=== PATIENT | female | born 1930 | race Caucasian/White ===

== ENCOUNTER 2017-01-16 13:09 | Inpatient (IN) ==
[2017-01-16] MEDS ORDERED: SODIUM CHLORIDE 0.9% 500 ML IV STA (14:03)
[2017-01-16 14:14] LABS: Basophils # 0.1 10*3/uL (0.0-0.2); Basophils % 0.6 % (0.0-0.8); Eosinophils # 0.3 10*3/uL (0.0-0.87); Eosinophils % 2.2 % (0.00-10.9); Hematocrit 38.7 VOL% (35.7-47.0); Hemoglobin 12.4 GM/DL (12.0-16.0); Immature Granulocytes % 0.4 %; Immature Granulocytes Absolute 0.05 #; Lymphocytes # 2.1 10*3/uL (1.4-4.0); Lymphocytes % 17.5 % (21.3-54.2); Mean Corpuscular Hemoglobin 30 PG (27-34); Mean Corpuscular Volume 94.9 FL (87-102); Mean Platelet Volume 10.1 FL (9.6-12.0); Monocytes # 0.6 10*3/uL (0.11-0.8); Monocytes % 5.1 % (1.7-12.7); Neutrophils # 8.9 10*3/uL (1.4-7.4); Neutrophils % 74.2 % (38.7-73.9); Platelet Count 265 T/CUMM (130-400); Red Blood Count 4.08 MC/CUMM (3.8-5.5); Red Cell Distribution Width 12.6 % (9.3-17.3)
--- NOTE | 2017-01-16 14:39 | XRay Report ---
History: Abdominal pain Date: 01/16/2017 Study: Flat and erect abdomen Comparison exam: No previous similar There is no evidence of pneumoperitoneum. The bowel gas pattern is nonobstructive without gross mass lesion. There is a moderate amount of stool in the normal-caliber colon. There is moderate lumbar spondylosis. There is mild to moderate lumbar degenerative disc narrowing. Compression screw and plate stabilizing an old left femoral neck fracture. [place] from remote midline abdominal surgery overlie the abdomen. Impression: No definite acute process. Moderate amount of retained stool in the colon PROCEDURE INTERPRETED AT [facility] DEPARTMENT OF RADIOLOGY Final Report Signed by: Dr. Inge Lagunas
--- NOTE | 2017-01-16 14:41 | XRay Report ---
History: Shortness of breath Date: 01/16/2017 Study: Chest x-ray single view portable Comparison exam: October 16, 2016 The cardiac silhouette is upper normal size. There is no mediastinal mass. There is moderate aortic arch calcification. There is no pleural effusion. There are some scattered emphysematous changes in the lungs. There is no acute infiltrate. There is [id number] thoracic spondylosis and suspected osteopenia. Impression: No acute process. Chronic lung changes PROCEDURE INTERPRETED AT [facility] DEPARTMENT OF RADIOLOGY Final Report Signed by: Dr. Inge Lagunas
[2017-01-16 14:43] LABS: Albumin 3.6 G/DL (3.4-5.0); Bilirubin,Total 0.8 MG/DL (0.2-1.0); Calcium 9.4 MG/DL (8.5-10.1); Magnesium 2.2 MG/DL (1.8-2.4); Osmolality,Calculated 278.3 MOS/KG (273-304); Potassium 3.5 MMOL/L (3.5-5.1); Total Protein 7.2 G/DL (6.4-8.3)
--- NOTE | 2017-01-16 15:13 | Emergency Department Note ---
Maria C Han Gwan, am scribing for, and in the presence of, Jesus Foster MD 14:08. Cristian Han Phillip K, MD, personally performed the services described in this documentation, ascribed by Michlele Lombardi in my presence, and it is both accurate and complete 513 . Arrival - Arrival Chief Complaint: GI Bleed/Rectal Stated Complaint: rectal bleed ED Nursing Triage Note: Pt c/o rectal bleeding for 1 wk worse over the last 2 days with abd pain. Mode of Arrival: Wheelchair Limitations: No Limitations Source: Patient, Old Records Reviewed, RN Notes Reviewed Time Seen by Provider: 01/16/17 13:34 - History of Present Illness HPI Narrative: Pt is a 86 y/o female who presents to the ED with a c/o rectal bleeding with an onset 1 week ago. Patient stated that her sxs began to worsens 2 days ago and has been accompanied by abd pain and pain in rectum during BM. This prompted pt to report to ED for further evaluation. Patient continued to note that she has a hx of colon blockage which causes her BM not to pass her rectum which in turn she has to use Tucks Pads to pullout her BM. Patient then noted that for the past 2 days she has noticed bright red blood in her stool and on the tissue after she wipes. Patient confirmed that she has noticed blood every time she goes to the bathroom and that Dr. Head and Dr. Mcdonald performed her Colon Surgery. She denies being dx with Colon CA, not having a scope performed since her Colon Surgery in 1999, any N/V, fever being on any blood thinners or having a PCP. No other problems/complaints reported in ED. Onset (ago): day(s) Severity: moderate Allergies/Adverse Reactions: Allergies Allergy/AdvReac Type Severity Reaction Status Date / Time No Known Allergies Allergy Unverified 10/16/16 14:00 Home Medications: Home Medications Medication Instructions Recorded Confirmed Type Multivit-Min/FA/Lycopen/Lutein 1 each PO DAILY 10/16/16 01/16/17 History [Centrum Silver Tablet] Sucralfate Tab [Carafate Tab] 1 tablet PO QID 10/16/16 01/16/17 History Meclizine [Antivert] 12.5 mg PO QID 01/16/17 01/16/17 History Review of System - Review of System 12 point system: reviewed and no additional remarkable complaints except as stated - Review of System Constitutional: Absent: chills, fever Eyes: Absent: discharge, pain Head/Ears/Nose/Throat: Absent: earache Respiratory: Absent: cough Cardiovascular: Absent: chest pain Gastrointestinal: Present: as per HPI, abdominal pain, diarrhea. Absent: nausea , vomiting Genitourinary female: Present: as per HPI, other (blood in stool) Musculoskeletal: Absent: arm pain, back pain, lower back pain, leg pain, neck pain Skin: Absent: rash, lesions Neurological: Absent: headache, weakness Medical,Surgical,& Family Hx - Medical History Cardio: History of: Hypertension HEENT: History of: Eye Problem (glasses) Genitourinary: History of: Kidney Stones Gastrointestinal: History of: Hemorrhoids, GI Problems Musculoskeletal: History of: Musculoskeletal Problems (left hip fracture) - Surgical History Abdominal Surgeries: Surgical HX of: Abdominal Surgery (colon) Reproductive Surgeries: Surgical HX of;: Hysterectomy (1968) - Family History Family History: Reports;: Family Heart Disease (mother), Family Hypertension - Social History Smoking Status: Never smoker Exam Vital Signs: Vital Signs Temperature 99.2 F 01/16/17 13:20 Pulse Rate 95 H 01/16/17 13:20 Respiratory Rate 18 01/16/17 13:20 Blood Pressure 153/93 01/16/17 13:20 O2 Sat by Pulse Oximetry 97 01/16/17 13:20 - General General appearance: alert, in no apparent distress - Head Head exam: Present: atraumatic, normocephalic - Eye Eye exam: Present: normal appearance, PERRL, EOMI - ENT ENT exam: Present: normal oropharynx, mucous membranes moist (pale mucous membrane) - Neck Neck exam: Present: full ROM, trachea midline. Absent: tenderness - Chest Chest inspection: Present: symmetric chest wall rise. Absent: tenderness - Respiratory Respiratory exam: Present: normal lung sounds bilaterally. Absent: respiratory distress - Cardiovascular Cardiovascular exam: Present: regular rate, normal rhythm, normal heart sounds. Absent: murmur - Abdominal Exam Abdominal exam: Present: soft, tenderness (LLQ and RLQ diffuse tenderness) - Rectal Exam Rectal exam: Present: heme (+) stool - Extremities Exam Extremities exam: Present: full ROM. Absent: tenderness, calf tenderness - Back Exam Back exam: Present: full ROM. Absent: tenderness - Neurological Exam Neurological exam: Present: alert, oriented X3, CN II-XII intact. Absent: motor sensory deficit - Psychiatric Psychiatric exam: Present: normal affect, normal mood - Skin Skin exam: Present: warm, dry, intact, normal color Results - Labs CBC & BMP: 01/16/17 14:07 01/16/17 14:07 Lab Results: I have reviewed the patients labs Labs: Laboratory Tests 01/16/17 14:07 WBC 12.0 RBC 4.08 Hgb 12.4 Hct 38.7 Plt Count 265 Neut % (Auto) 74.2 H Lymph % (Auto) 17.5 L Neut # (Auto) 8.9 H Laboratory Tests 01/16/17 14:07 INR 1.0 PT Patient/Control Mix 10.0 - Diagnostic Findings Procedure: Abdominal x-ray: report reviewed by me (No definite acute process. Moderate amount of retained stool in the colon. ), Chest x-ray: report reviewed by me (No acute process. Chronic lung changes.) Disposition Clinical Impression: Lower GI bleed, Hemorrhoids, Possible diverticular bleed Case discussed with: patient Disposition: Still a Patient Condition: Guarded Additional Instructions: Admit to the hospitalist.
--- NOTE | 2017-01-16 15:46 | Hospitalist History & Physical ---
Assessment and Plan (1) DVT prophylaxis Status: Acute Assessment and plan: We will start VTE prophylaxis. Will apply SCD; will not start any pharmaceutical agents at this time due to active bleeding. Current Visit: No (2) Lower GI bleed Status: Acute Assessment and plan: Will consult GI for evaluation. Will hydrate, start Protonix gtt, type and screen. Will obtain serial labs; and recheck CMP in AM. Current Visit: Yes History of Present Illness Chief complaint: bloody stools and abdominal pain. History of present illness: This is a 86 year-old female that presented to the ED at [facility] today with a chief compliant of rectal bleeding. She has a rather impressive medical history of hypertension, kidney stones, hemorrhoids, and left hip fracture. She has a surgical history of hysterectomy and colon surgery. She reported the onset of symptoms one week prior to presentation. She reported a increase of the above complaints with an acute onset of abdominal pain and pain during defecation. The patient reports a history of colon blockage that inhibits her ability to pass stool and requires the use of Tucks pads to remove stool. She reported bright red blood in her stool, in the toilet , and on tissue after wiping for the past two days. A digital rectal exam was performed per Dr. Foster. She was noted to have hemorrhoids upon visual inspection and moderate amount of formed stool with blood present upon examination. Labs were obtained; which were essentially unremarkable. Chest radiograph was obtained and benign. Abdominal xray revealed no definite acute process and moderate amount of retained stool in the colon. After discussion with both Dr. Foster and Dr. Negrete, the patient will be admitted to hospitalist services for continuation of care. We will consult GI to evaluate and treat. Home Medications Medication Instructions Recorded Confirmed Type Multivit-Min/FA/Lycopen/Lutein 1 each PO DAILY 10/16/16 01/16/17 History [Centrum Silver Tablet] Sucralfate Tab [Carafate Tab] 1 tablet PO QID 10/16/16 01/16/17 History Meclizine [Antivert] 12.5 mg PO QID 01/16/17 01/16/17 History Allergies Allergy/AdvReac Type Severity Reaction Status Date / Time No Known Allergies Allergy Unverified 10/16/16 14:00 Medical,Surgical,& Family Hx - Medical History Cardio: History of: Hypertension HEENT: History of: Eye Problem (glasses) Genitourinary: History of: Kidney Stones Gastrointestinal: History of: Hemorrhoids, GI Problems Musculoskeletal: History of: Musculoskeletal Problems (left hip fracture) - Surgical History Abdominal Surgeries: Surgical HX of: Abdominal Surgery (colon) Reproductive Surgeries: Surgical HX of;: Hysterectomy (1968) - Family History Family History: Reports;: Family Heart Disease (mother), Family Hypertension - Social History Smoking Status: Never smoker Have you smoked in the last 12 months: No Frequency of Alcohol Use: None Type of Drug Use: None Marital Status: Single Lives With:: Alone Functional capacity: independent ambulation 12 point system: reviewed and no additional remarkable complaints except as stated Exam - Constitutional Vitals: Period Temp Pulse Resp BP Sys/Soares Pulse Ox Last 24 Hr 99.2 F-99.2 F 74-95 18-18 153-173/83-96 96-97 General appearance: normal weight, no acute distress - Head Head exam: Present: normal inspection, normocephalic, atraumatic - Eye Eye exam: Present: EOMI. Absent: conjunctival injection, nystagmus Pupils: Present: HONG, normal accommodation - ENT ENT exam: Present: normal exam, normal external ear exam, normal oropharynx - Neck Neck exam: Present: normal inspection. Absent: lymphadenopathy, meningismus, tenderness, thyromegaly - Respiratory Respiratory exam: Present: clear to auscultation bilaterally. Absent: rales, rhonchi, stridor, wheezes - Cardiovascular Cardiovascular exam: Present: regular rate and rhythm. Absent: carotid bruit, diastolic murmur, gallop, JVD, rubs, systolic murmur - GI/Abdominal GI/Abdominal exam: Present: hypoactive bowel sounds, tenderness. Absent: mass, soft - Extremities Exam Extremities exam: Present: normal inspection, normal capillary refill, full ROM. Absent: edema - Back Exam Back exam: Present: normal inspection - Neurological Exam Neurological exam: Present: alert, oriented X3, CN II-XII intact - Psychiatric Psychiatric exam: Present: normal affect - Skin Skin exam: Present: normal color, warm, dry Results - Labs CBC & BMP: 01/16/17 14:07 01/16/17 14:07 Lab Results: I have reviewed the past 24 hour labs
[2017-01-16] MEDS: SODIUM CHLORIDE 0.9% 1,000 ML IV SCH (18:22)
[2017-01-16] MEDS: PANTOPRAZOLE INJ 200 MG in SODIUM CHLORIDE 0.9% 250 ML IV SCH ×2 (18:36→20:26)
[2017-01-16] MEDS ORDERED: NIFEdipine 10 MG CAPSULE PO PRN (18:49)
[2017-01-16 19:13] LABS: Hematocrit 35.5 VOL% (35.7-47.0); Hemoglobin 11.3 GM/DL (12.0-16.0)
[2017-01-16] MEDS ORDERED: PANTOPRAZOLE INJ 200 MG in SODIUM CHLORIDE 0.9% 250 ML IV SCH (20:00)
[2017-01-16] MEDS ORDERED: MECLIZINE 25 MG TABLET PO SCH ×2 (21:00)
[2017-01-16] MEDS ORDERED: SUCRALFATE 1 GM TABLET PO SCH (21:00)
[2017-01-17 01:51] LABS: Hematocrit 31.1 VOL% (35.7-47.0); Hemoglobin 10.1 GM/DL (12.0-16.0)
[2017-01-17 01:52] LABS: Basophils % 0.5 % (0.0-0.8); Eosinophils # 0.3 10*3/uL (0.0-0.87); Eosinophils % 4.4 % (0.00-10.9); Hematocrit 31.1 VOL% (35.7-47.0); Immature Granulocytes % 0.3 %; Immature Granulocytes Absolute 0.02 #; Lymphocytes # 2.4 10*3/uL (1.4-4.0); Lymphocytes % 31.3 % (21.3-54.2); Mean Corpuscular HGB Conc 32.2 GM/DL (32-36); Mean Corpuscular Hemoglobin 31 PG (27-34); Mean Corpuscular Volume 94.8 FL (87-102); Mean Platelet Volume 10.1 FL (9.6-12.0); Monocytes # 0.5 10*3/uL (0.11-0.8); Monocytes % 6.8 % (1.7-12.7); Neutrophils # 4.4 10*3/uL (1.4-7.4); Neutrophils % 56.7 % (38.7-73.9); Platelet Count 260 T/CUMM (130-400); Red Blood Count 3.28 MC/CUMM (3.8-5.5); Red Cell Distribution Width 12.7 % (9.3-17.3); White Blood Count 7.8 T/CUMM (4-12)
[2017-01-17 02:04] LABS: PT Patient Result 10.6 SECS
--- NOTE | 2017-01-17 07:56 | EKG Report ---
Stationary ECG Study [facility] Test Date: 01/16/2017 2:22:55 PM Pat Name: MARY ANN PUGA Department: Room: 518 Gender: F Eyeglass Frame Truer: : 1930 Requested by: Jesus Rosas Order Number: [id number] Reading MD: JJ COLE Intervals [place] Rate: 78 P: 67 PA: 194 QRS: -52 QRSD: 76 T: 53 QT: 379 QTc: 413 Interpretive Statements SINUS RHYTHM LEFT ANTERIOR FASCICULAR BLOCK Electronically Signed On 01-17-17 13:38:50 CDT by JJ COLE [email or web address]
[2017-01-17] MEDS: SODIUM CHLORIDE 0.9% 1,000 ML IV SCH ×3 (08:49→16:13)
[2017-01-17] MEDS: MULTIVITAMIN (CENTRUM) TABLET PO SCH (08:50)
[2017-01-17] MEDS ORDERED: MECLIZINE 25 MG TABLET PO SCH ×2 (09:00→17:00)
[2017-01-17 09:24] LABS: Hematocrit 32.7 VOL% (35.7-47.0); Hemoglobin 10.6 GM/DL (12.0-16.0)
--- NOTE | 2017-01-17 13:37 | Gastrointestinal Consult Note ---
Assessment and Plan (1) Lower GI bleed Status: Acute Assessment and plan: This patient likely has bleeding either from ischemic colitis versus diverticular source versus hemorrhoidal bleeding, she has underlying constipation which has fit into the above complaints. We will definitely need to keep her on something to keep her flowing such as Linzess or MiraLAX. Will start this after the colonoscopy prep tonight. Patient was appraised of the risks and benefits of the above procedure these include but are not limited to: Bleeding, infection, perforation, cardiac and pulmonary compromise. She is thinking about getting a hemorrhoidal banding and we will consent her for this as well, in case it is required. Current Visit: Yes (2) Acute post-hemorrhagic anemia Status: Acute Assessment and plan: The patient's hematocrit is dropped a few points since arrival here. This is gone from 37 down to 31% but is back up to 32% indicating relative stability. We will look for a potential bleeding source aside from the hemorrhoids as mentioned above. It is been since 2001 when the patient had her last colonoscopy 15 years ago. A single hyperplastic polyp was found at that time we will look for further polyp disease. Current Visit: Yes (3) Internal and external hemorrhoids without complication Status: Acute Assessment and plan: This is likely the source of the patient's bleeding given the red appearance and relatively low drop in the patient's blood counts at this point. We need to rule out diverticular bleeding and colon cancer bleeding given the amount of time since her last colonoscopy (15 years). Current Visit: Yes (4) Constipation by outlet dysfunction Status: Acute Assessment and plan: We will need to keep the patient on something in order to facilitate loose bulky bowel movements. Would suggest use of MiraLAX twice to 3 times daily for this purpose. We will likely start this after the colonoscopy depending on findings. Current Visit: Yes History of Present Illness Chief complaint: Rectal bleeding, constipation, possible anal stenosis/outlet obstruction History of present illness: Ms. 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 Newton on 12/01/1999. She also had had a previous colonoscopy done back on 01/16/[address] Mcdonald demonstrating a single ascending colon polyp, hyperplastic on pathologic evaluation. She had previous hemorrhoidectomy done in [facility] and felt that this was excruciating and did not want to have any further surgical hemorrhoidectomy but notes that her hemorrhoids have returned and that she feels stenosis/narrowing at the rectum and often has to manually disimpact herself. She comes in the hospital with increasing pain and rectal bleeding over the last 2 days with defecation. She states this is a moderate amount of blood loss. She has not had any further rectal bleeding since her arrival here. Constipation was indicated on the x-rays done downstairs the patient does admit to having a bowel movement every 4 days or so if she does not take anything. The constipation has been a long-term problem for her possibly due to. She does not have any particular abdominal pain, she does not have a history of reflux or heartburn. She is currently on Protonix drip and we can likely discontinue that given that this appears to be a lower GI bleed. Stool is daigle-brown and grossly guaiac positive. Patient's hematocrit is dropped from 38.7% on admission all the way down to 31.1% earlier today. It is stabilized around this area level since that time. She does not appear to be actively bleeding now. Her liver function tests and other electrolytes appear to be within normal limits with a BUN and creatinine of 9 at 0.6. She is not complaining of any fevers chills or other GI complaints. Home Medications Medication Instructions Recorded Confirmed Type Multivit-Min/FA/Lycopen/Lutein 1 each PO DAILY 10/16/16 01/16/17 History [Centrum Silver Tablet] Sucralfate Tab [Carafate Tab] 1 gram PO QID 10/16/16 01/16/17 History Meclizine [Antivert] 12.5 mg PO QID 01/16/17 01/16/17 History Allergies Allergy/AdvReac Type Severity Reaction Status Date / Time No Known Allergies Allergy Unverified 10/16/16 14:00 Medical,Surgical,& Family Hx - Medical History Cardio: History of: Hypertension Psychological: No history of: Anxiety Disorders, ADHD, Behavior Problems, Bipolar Disorder, Depression, Previous Suicide Attempt, Psychiatric/Substance Abuse Tx, Schizophrenia, Violent Behavior, Psychiatric Problems HEENT: History of: Eye Problem (glasses) Genitourinary: History of: Kidney Stones Gastrointestinal: History of: Hemorrhoids, GI Problems (constipation) Musculoskeletal: History of: Musculoskeletal Problems (left hip fracture) - Surgical History Abdominal Surgeries: Surgical HX of: Abdominal Surgery (colon) Reproductive Surgeries: Surgical HX of;: Hysterectomy (1968) - Family History Family History: Reports;: Family Heart Disease (mother, father), Family Hypertension - Social History Smoking Status: Never smoker Frequency of Alcohol Use: None Type of Drug Use: None Review of systems: Constitutional: Denies fever, chills, nausea, and vomiting Eyes: Denies dry eyes, and scleral icterus HENT: Denies headaches Cardiovascular: Denies acute chest pain and claudication Respiratory: Denies shortness of breath, wheezing, and difficulty breathing, denies cough Gastrointestinal: As noted in the HPI Genitourinary: Denies dysuria and hematuria Neurologic: Denies vision loss, and loss of sensation Musculoskeletal: Patient does have some joint swelling, joint stiffness, and muscular weakness, particularly in association with her left hip Psychiatric: Denies depression and chang symptoms Heme-Lymph: Denies easy bruising, lymph node enlargement or tenderness, night sweats, excessive bleeding Allergies-immunologic: Denies pruritus and rhinorrhea Exam - Constitutional Vitals: Period Temp Pulse Resp BP Sys/Soares Pulse Ox Last 24 Hr 97.4 F-98.8 F 68-83 16-18 143-181/71-92 92-100 General appearance: under weight - Eye Eye exam: Present: EOMI Pupils: Present: HONG - Respiratory Respiratory exam: Present: clear to auscultation bilaterally. Absent: rhonchi, stridor, wheezes - Cardiovascular Cardiovascular exam: Present: regular rate and rhythm, systolic murmur. Absent : diastolic murmur - GI/Abdominal GI/Abdominal exam: Present: normal bowel sounds, soft, other (Rectal exam shows a henrry of external hemorrhoids, there is some slight anal stenosis noted here , small internal hemorrhoids palpated, stool is daigle claylike and grossly guaiac positive). Absent: distended, guarding, tenderness, rebound - Neurological Exam Neurological exam: Present: alert, oriented X3, CN II-XII intact. Absent: motor sensory deficit (Patient is surprisingly communicative given her age.) - Psychiatric Psychiatric exam: Present: normal affect, normal mood - Skin Skin exam: Present: warm Results - Labs CBC & BMP: 01/17/17 09:11 01/16/17 14:07
--- NOTE | 2017-01-17 14:08 | Hospitalist Progress Note ---
Assessment and Plan (1) Acute post-hemorrhagic anemia Status: Acute Assessment and plan: The patient is admitted to the hospital with rectal bleeding. Dr. Lowe evaluated her today and we anticipate colonoscopy tomorrow. Current Visit: Yes (2) Hypertension Status: Acute Current Visit: No (3) Hemorrhoids Status: Acute Current Visit: Yes Hospitalist: Subjective Interval history: The patient states that she is not having any further rectal bleeding. The patient has had additional soft stool today. The patient anticipates colonoscopy tomorrow. I reviewed Dr. Reagan's consultation. Exam - Constitutional Vitals: Period Temp Pulse Resp BP Sys/Soares Pulse Ox Last 24 Hr 97.4 F-98.8 F 68-83 16-18 143-181/71-92 92-100 General appearance: no acute distress - Respiratory Respiratory exam: Present: clear to auscultation bilaterally - Cardiovascular Cardiovascular exam: Present: regular rate and rhythm - GI/Abdominal GI/Abdominal exam: Present: normal bowel sounds Results - Labs CBC & BMP: 01/17/17 09:11 01/16/17 14:07 Lab Results: I have reviewed the past 24 hour labs
[2017-01-17] MEDS: BISACODYL 5 MG TABLET PO SCH ×3 (14:30→21:21)
[2017-01-17] MEDS ORDERED: POLYETHYLENE GLYCOL POWDER 255 GM BOTTLE PO ONE (16:00)
[2017-01-17] MEDS: MECLIZINE 25 MG TABLET PO SCH (17:00)
[2017-01-17] MEDS ORDERED: MAGNESIUM CITRATE 300 ML BOTTLE PO ONE (21:00)
[2017-01-18] MEDS: SODIUM CHLORIDE 0.9% 1,000 ML IV SCH (01:10)
[2017-01-18] MEDS: BISACODYL 5 MG TABLET PO SCH ×2 (05:37→17:40)
[2017-01-18 07:53] LABS: PT Patient Result 10.6 SECS
[2017-01-18] MEDS: MECLIZINE 25 MG TABLET PO SCH ×4 (08:34→17:45)
[2017-01-18] MEDS: MULTIVITAMIN (CENTRUM) TABLET PO SCH (08:34)
[2017-01-18] MEDS: PANTOPRAZOLE 40 MG TABLET PO SCH (08:34)
--- NOTE | 2017-01-18 09:16 | Hospitalist Progress Note ---
Assessment and Plan - Time spent with patient Time spent with patient: Less than 30 minutes (1) Hypertension Status: Acute Assessment and plan: 86-year-old white female with history of hypertension admitted with rectal bleeding and anemia. Patient is several months out from hip fracture and has been in swing bed for rehab until just recently. Dr. Lowe from GI has evaluated and has postponed her scope that was scheduled for today due to patient not being clear. She will be given clear liquids today and prepped again for scope in the morning. He is trying to determine if her bleeding is from her hemorrhoids versus her colon. She did have a polyp removed by Dr. Mcdonald several years back. Patient is also most likely constipated due to narcotic use status post hip surgery. Dr. Lowe is recommending MiraLAX and/ or Linzess to be started after her colonoscopy. No further changes needed to be made today. Further recommendations to follow per Dr. Negrete. Current Visit: No (2) Hemorrhoids Status: Acute Current Visit: Yes (3) Acute post-hemorrhagic anemia Status: Acute Current Visit: Yes Hospitalist: Subjective Interval history: Ms. Arita does not feel well this morning. She was given a clear liquid tray this morning and feels nauseated. She states they gave her 3 enemas and the colon prep last night and she is still not clear so her scope has been postponed till tomorrow. She is complaining of some abdominal discomfort superior to her navel. Exam - Constitutional Vitals: Period Temp Pulse Resp BP Sys/Soares Pulse Ox Last 24 Hr 97.6 F-98.7 F 71-91 16-20 151-167/77-90 94-97 Exam: 86-year-old white female, no acute distress, alert and oriented Chest clear CV regular rate and rhythm Abdomen mildly distended, nontender to palpation Extremities no edema Results - Labs CBC & BMP: 01/17/17 09:11 01/16/17 14:07 Lab Results: I have reviewed the past 24 hour labs
--- NOTE | 2017-01-18 17:25 | Gastrointestinal Progress Note ---
Assessment and Plan (1) Lower GI bleed Status: Acute Assessment and plan: This patient likely has bleeding either from ischemic colitis versus diverticular source versus hemorrhoidal bleeding, she has underlying constipation which has fit into the above complaints. We will definitely need to keep her on something to keep her flowing such as Linzess or MiraLAX. Will start this after the colonoscopy prep tonight. Patient was appraised of the risks and benefits of the above procedure these include but are not limited to: Bleeding, infection, perforation, cardiac and pulmonary compromise. She is thinking about getting a hemorrhoidal banding and we will consent her for this as well, in case it is required. 01/18/17--the patient's bleeding is trailed off at this point. She feels less abdominal pain. We are going to be looking to see if we see evidence of ischemic colitis versus diverticular bleeding versus simple hemorrhoidal bleeding. She has dropped her hematocrit from 38% down to 32% at this point. She is otherwise feeling fine but still anxious about the procedure tomorrow. We did again discuss the need for a separate consent for the hemorrhoidal banding. Current Visit: Yes (2) Acute post-hemorrhagic anemia Status: Acute Assessment and plan: The patient's hematocrit is dropped a few points since arrival here. This is gone from 37 down to 31% but is back up to 32% indicating relative stability. We will look for a potential bleeding source aside from the hemorrhoids as mentioned above. It is been since 2001 when the patient had her last colonoscopy 15 years ago. A single hyperplastic polyp was found at that time we will look for further polyp disease. 01/18/17--We will continue to follow CBCs over time. Currently she is at 32%. Current Visit: Yes (3) Internal and external hemorrhoids without complication Status: Acute Assessment and plan: This is likely the source of the patient's bleeding given the red appearance and relatively low drop in the patient's blood counts at this point. We need to rule out diverticular bleeding and colon cancer bleeding given the amount of time since her last colonoscopy (15 years). 01/18/17--I am fairly certain the patient will be prepped adequately enough to be able to do the colonoscopy tomorrow. She is wanting to stay through Sunday into Sunday when she should be able to go home. Patient states that it will be difficult to get somebody here to take her home tomorrow should she be blessed for potential discharge post colonoscopy. Current Visit: Yes (4) Constipation by outlet dysfunction Status: Acute Assessment and plan: We will need to keep the patient on something in order to facilitate loose bulky bowel movements. Would suggest use of MiraLAX twice to 3 times daily for this purpose. We will likely start this after the colonoscopy depending on findings. 01/18/17--Colonoscopy planned for tomorrow, further recommendations post completion of procedure. Current Visit: Yes Gastroenterology - PN: Subj Interval history: Unfortunately the patient was not prepped adequately this morning and we had to cancel the case. She has since passed a good deal more stool and seems to be doing better at this point. Abdominal pain is decreased at this point, mostly in the left lower quadrant. Exam (Progress Note) - Constitutional Vitals: Period Temp Pulse Resp BP Sys/Soares Pulse Ox Last 24 Hr 97.6 F-98.7 F 71-91 16-20 149-162/73-90 96-98 General appearance: mild distress - Head Head exam: Present: normocephalic, atraumatic - Eye Eye exam: Present: EOMI - Respiratory Respiratory exam: Present: clear to auscultation bilaterally. Absent: rhonchi, stridor, wheezes - Cardiovascular Cardiovascular exam: Present: regular rate and rhythm - GI/Abdominal GI/Abdominal exam: Present: normal bowel sounds, distended, tenderness (Left lower quadrant), soft - Extremities Exam Extremities exam: Present: other (Left hip fracture). Absent: edema - Back Exam Back exam: Present: normal inspection - Neurological Exam Neurological exam: Present: alert, oriented X3 - Psychiatric Psychiatric exam: Present: normal affect, normal mood - Skin Skin exam: Present: warm Results - Labs CBC & BMP: 01/17/17 09:11 01/16/17 14:07
[2017-01-18] MEDS ORDERED: POLYETHYLENE GLYCOL POWDER 255 GM BOTTLE PO ONE (18:00)
[2017-01-18] MEDS ORDERED: MAGNESIUM CITRATE 300 ML BOTTLE PO ONE (21:00)
[2017-01-19] MEDS: BISACODYL 5 MG TABLET PO SCH ×2 (00:30→10:50)
[2017-01-19] MEDS ORDERED: LIDOCAINE 2% 5 ML VIAL ONE (07:30)
[2017-01-19] MEDS ORDERED: PROPOFOL 200 MG/20 ML VIAL IV ONE (07:30)
--- NOTE | 2017-01-19 07:58 | Operative Note ---
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 Single diverticulum noted, not thought to be the source of the bleeding, no polyps or cancer seen.) Procedure: PROCEDURE: Colonoscopy with cold biopsy for pathology and 2 cm anal dilation REFERRING PHYSICIAN: Ruben Negrete MD INDICATIONS: Rectal bleeding with left lower quadrant pain, history of internal/external hemorrhoids. 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 The prior H&P was reviewed and interrim changes are as noted: No change from GI consultation 2 days ago ENDOSCOPIST: Harry Lowe MD ENDOSCOPE: [employer] Video 100 System colonoscope COLON PREPARATION: 238 gm of PEG containing laxative and 1.9 liters of gatoraid/sports drink and dulcolax 15 mg q8 hours x 3 ASA CLASS: 3 EXAM: CV: regular rate and rhythm Respiratory: Clear without wheezes Abdominal: active bowel sounds Rectal: Good tone, no fissures or fistulas MEDICATION: Per nursing anesthesia protocol, see their notes PROCEDURE: After discussion of the potential risks and benefits of colonoscopy, the informed consent was obtained, from patient or health care surrogate. The patient was then placed in the left lateral decubitus position where sedation was achieved as noted above. Rectal examination was followed by insertion of the colonoscope. The colonoscope was passed under direct visualization to the cecum. Advancement was facilitated by insertion/withdrawl techniques, abdominal pressure and patient positioning. Once the cecal pole was reached, slow withdrawal was performed with the findings as noted below. The patient tolerated the procedure well and without complication. QUALITY OF PREP: Excellent WITHDRAWL TIME: 7 minutes 30 seconds BIOPSIES: Anal verge biopsies PHOTOGRAPHS: Obtained FINDINGS: The musoca appeared normal in the following regions: sigmoid colon, descending colon, splenic flexure, transverse colon, hepatic flexure, ascending colon and cecum. Position within the cecum was confirmed by ileocecal valve, appendiceal oriface, and the convergence of folds (crows foot). No colitis, polyp, mass or AVM was noted throughout the colon. A single sigmoid diverticulum noted. Hector ulceration was noted and granulomatous tissue in her ring with the patient's previous hemorrhoidectomy had occurred at the anal verge , biopsies were taken here and the rectal stenosis was dilated to 2 cm by anal dilator. Intubation of the TI was achieved x 5 cm with normal. 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 Single diverticulum noted, not thought to be the source of the bleeding, no polyps or cancer seen. RECOMMENDATIONS: High fiber diet Repeat colonosocopy will be in 10 years when the patient reaches age 89. Citrucel 1 tablespoon in 12 oz juice BID: 1 bottle: :11 Follow up by phone for biopsy results in 1-2 weeks by phone Anal redilation of further stenosis occurs in the future MiraLAX 1 capful twice daily to help keep bowel movements loose and twice daily. Harry Lowe MD COPY TO: Ruben Negrete MD Anesthesia: MAC Surgeon / Physician: Harry Lowe Estimated blood loss: minimal Specimens: other (Anal verge biopsies--stercoral ulcer versus granulomatous tissue) Condition: stable Disposition: post procedure unit ([facility]) Results - Labs CBC & BMP: 01/17/17 09:11 01/16/17 14:07 Discharge Plan - Discharge Medications No Action Sucralfate Tab [Carafate Tab] 1 gram PO QID Multivit-Min/FA/Lycopen/Lutein [Centrum Silver Tablet] 1 each PO DAILY Meclizine [Antivert] 12.5 mg PO QID - Follow Up or Referral - Forms/Instructions
--- NOTE | 2017-01-19 08:02 | Anesthesia Post-Op ---
Anesthesia Post OP - Post Ansesthetic Evaluation Patient seen in post op: Yes Resp: within normal limits CV: within normal limits Mental: within normal limits Temp: within normal limits [id number]: within normal limits Nausea and Vomiting: within normal limits Pain: within normal limits
--- NOTE | 2017-01-19 08:02 | Gastrointestinal Progress Note ---
Assessment and Plan (1) Lower GI bleed Status: Acute Assessment and plan: This patient likely has bleeding either from ischemic colitis versus diverticular source versus hemorrhoidal bleeding, she has underlying constipation which has fit into the above complaints. We will definitely need to keep her on something to keep her flowing such as Linzess or MiraLAX. Will start this after the colonoscopy prep tonight. Patient was appraised of the risks and benefits of the above procedure these include but are not limited to: Bleeding, infection, perforation, cardiac and pulmonary compromise. She is thinking about getting a hemorrhoidal banding and we will consent her for this as well, in case it is required. 01/18/17--the patient's bleeding is trailed off at this point. She feels less abdominal pain. We are going to be looking to see if we see evidence of ischemic colitis versus diverticular bleeding versus simple hemorrhoidal bleeding. She has dropped her hematocrit from 38% down to 32% at this point. She is otherwise feeling fine but still anxious about the procedure tomorrow. We did again discuss the need for a separate consent for the hemorrhoidal banding. 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 Single diverticulum noted, not thought to be the source of the bleeding, no polyps or cancer seen. There were no significant hemorrhoids to band. Biopsies are taken along the anal ring of areas of excoriation/ulceration. The rectum was dilated to 2 cm to see if this helps with patient's ability to defecate. Current Visit: Yes (2) Acute post-hemorrhagic anemia Status: Acute Assessment and plan: The patient's hematocrit is dropped a few points since arrival here. This is gone from 37 down to 31% but is back up to 32% indicating relative stability. We will look for a potential bleeding source aside from the hemorrhoids as mentioned above. It is been since 2001 when the patient had her last colonoscopy 15 years ago. A single hyperplastic polyp was found at that time we will look for further polyp disease. 01/18/17--We will continue to follow CBCs over time. Currently she is at 32%. 01/19/17--The patient's hematocrit is stable. Current Visit: Yes (3) Internal and external hemorrhoids without complication Status: Acute Assessment and plan: This is likely the source of the patient's bleeding given the red appearance and relatively low drop in the patient's blood counts at this point. We need to rule out diverticular bleeding and colon cancer bleeding given the amount of time since her last colonoscopy (15 years). 01/18/17--I am fairly certain the patient will be prepped adequately enough to be able to do the colonoscopy tomorrow. She is wanting to stay through Sunday into Sunday when she should be able to go home. Patient states that it will be difficult to get somebody here to take her home tomorrow should she be blessed for potential discharge post colonoscopy. 01/19/17--The patient is stable with the findings noted above on her colonoscopy. For social reasons, she would like to stay in the hospital for an additional day and be discharged tomorrow morning. Current Visit: Yes (4) Constipation by outlet dysfunction Status: Acute Assessment and plan: We will need to keep the patient on something in order to facilitate loose bulky bowel movements. Would suggest use of MiraLAX twice to 3 times daily for this purpose. We will likely start this after the colonoscopy depending on findings. 01/18/17--Colonoscopy planned for tomorrow, further recommendations post completion of procedure. 01/19/17--We Will watch the patient on the MiraLAX given twice daily. She can be discharged today if she can find a ride, otherwise tomorrow. We will see how she does with a solid diet. Current Visit: Yes Gastroenterology - PN: Subj Interval history: Patient is requesting to stay today as she has difficulty getting a ride back to her home with her hip fracture. She did well with the prep. Exam (Progress Note) - Constitutional Vitals: Period Temp Pulse Resp BP Sys/Soares Pulse Ox Last 24 Hr 98.1 F-98.9 F 72-88 16-18 133-162/58-81 92-98 General appearance: no acute distress - Head Head exam: Present: normocephalic, atraumatic - Eye Eye exam: Present: EOMI Pupils: Present: HONG - Respiratory Respiratory exam: Present: clear to auscultation bilaterally - Cardiovascular Cardiovascular exam: Present: regular rate and rhythm - GI/Abdominal GI/Abdominal exam: Present: normal bowel sounds, soft - Back Exam Back exam: Present: normal inspection - Neurological Exam Neurological exam: Present: alert, oriented X3, CN II-XII intact. Absent: motor sensory deficit - Psychiatric Psychiatric exam: Present: normal affect, normal mood - Skin Skin exam: Present: warm Results - Labs CBC & BMP: 01/17/17 09:11 01/16/17 14:07
[2017-01-19] MEDS ORDERED: POLYETHYLENE GLYCOL POWDER 17 GM PACK PO SCH (09:00)
[2017-01-19] MEDS: SODIUM CHLORIDE 0.9% 1,000 ML IV SCH ×2 (09:14→10:49)
[2017-01-19] MEDS: PANTOPRAZOLE 40 MG TABLET PO SCH (10:50)
[2017-01-19] MEDS: MULTIVITAMIN (CENTRUM) TABLET PO SCH (10:50)
[2017-01-19] MEDS: MECLIZINE 25 MG TABLET PO SCH ×2 (10:50→12:01)
--- NOTE | 2017-01-19 11:58 | Discharge Summary ---
Hospital Course - Hospital Course Hospital Course: Ms. Arita is an 86-year-old white female with history of hypertension, kidney stones, hemorrhoids, and recent left hip fracture admitted by hospitalist service on 01-[address] Lowe from GI was consulted and he recommended lower colonoscopy to rule out bleeding from ischemic colitis versus diverticular source versus hemorrhoidal bleeding. Patient underwent colon prep but this was unsuccessful. She underwent a second colon prep and had c scope this morning. Dr. Lowe found a stenotic ring at her rectum which had some ulceration possibly stercoral in nature. The rectum was dilated to 2 cm. He did note a single diverticulum that did not look to be the source of bleeding. He found no polyps or cancer. He also found no significant hemorrhoids to band. He took biopsies along the anal ring of the areas of excoriation and ulceration. Patient has been given a diet for lunch and okay to go home after. He recommends high fiber diet and giving MiraLAX twice a day to assist with her hard stools. Patient will follow-up her biopsy results in 1-2 weeks by phone. Repeat colonoscopy in 10 years or anal redilation if further stenosis occurs in the future. This is all been discussed with patient and she is in agreement. Patient's blood pressures have also been mildly elevated and she was encouraged to follow-up with her family doctor for routine blood pressure checks. Care has been coordinated with Dr. Lowe, Dr. Negrete, nursing and social workers. Care coordination and chart review with discharge paperwork took approximately 36 minutes. - Time spent with patient Time with patient DS: Greater than 30 minutes Diagnosis - Discharge Diagnosis (1) Status: Chronic (2) Status: Resolved (3) Status: Resolved Specialty Discharge - Follow Up or Referrals Discharge Plan - Discharge Data Disposition: Disch To Home/Self Care Condition at Discharge: Stable Discharge Diet: high fiber diet Activity: resume usual activities as tolerated Hygiene: may shower Driving: no restrictions Contact your physician if you experience:: Bleeding - Discharge Medications New Polyethylene Glycol Powder [Miralax] 17 gm PO BID #1 bottle Continue Sucralfate Tab [Carafate Tab] 1 gram PO QID Multivit-Min/FA/Lycopen/Lutein [Centrum Silver Tablet] 1 each PO DAILY Meclizine [Antivert] 12.5 mg PO QID - Follow Up or Referral Follow Up: Harry Lowe MD [Physician] - (call dr guerra office for biopsy results in 2wks) Primary care, physician [Other] - 1 Week (follow up w pcp for routine BP monitoring. BP were mildly elevated in hospital.) - Forms/Instructions Instructions: Constipation (DC), Hemorrhoids (DC), Rectal Bleeding (DC) Exam - Constitutional Vitals: Period Temp Pulse Resp BP Sys/Soares Pulse Ox Last 24 Hr 98.2 F-99.3 F 75-88 14-22 133-156/55-85 92-99 Exam: 86-year-old white female, no acute distress, alert and oriented Chest clear CV regular rate and rhythm Abdomen soft and nontender Extremities no edema Discharge Results Labs on day of discharge: Labs from last 24 hours 01/19/17 05:35 INR 1.0 PT Patient/Control Mix 11.0 DS: Provider Date of admission: 01/16/17 15:19 Primary care physician: . No PCP Attending physician on admission: Ruben Negrete MD Consults: 01/16/17 17:56 Consult to Physician [CONS] Routine Comment: Consulting Provider: Harry Lowe When should Consulting Provider be notified: Now Person Notified: Jennifer Date Notified: 01/17/17 Time Notified: 10:16 01/16/17 18:09 Consult to Dietitian [CONS] Routine Reason for Dietitian: Other Consult to Pastoral Services [CONS] Routine Comment: Pastoral Screen: Request Massage Therapist Visit 01/16/17 18:17 Consult to Pharmacy [CONS] Routine Reason for Pharmacy Consult: Adjust Meds Renal Funct Discharging clinician: MARIJA Josue Expected date of discharge: 01/19/17
[2017-01-19 12:18] VITALS: BP 147/74
--- NOTE | 2017-01-22 11:23 | Pathology Report from [facility] ---
ACCESSION # : [id number] PATIENT NAME : Mark Puga ORDERING DR : Harry Lowe MD CLINICAL HX: GI Bleed - Constipation POST-OP DX: Anal ulceration vs granuloma tissue SPECIMEN INFO: Anal verg biopsy GROSS DESCRIPTION: The specimen is received in formalin labeled "MARK PUGA " and consists of an aggregate daigle tissue measuring 0.11 x 0.5 cm, submitted in one cassette. DIAGNOSIS FOR MARK PUGA: ANAL VERGE BIOPSY: Hyperplastic rectal mucosa with mild inflammation and mucosal prolapse artifact. SERVICE DATE: 01/19/2017 REPORT DATE: 01/22/2017 PATHOLOGIST: Cesar Doss M.D. [facility]
== END 2017-01-19 13:40 | disposition home health service (06) | DRG 394 ==
LOC: N.ED 13:09 → N.EDINP 15:19 → SUATTDRO 15:19 → N.EDINP 17:20 → N.5E 17:56
PROVIDERS: ADMIT Internal Medicine; ATTEND Internal Medicine
PROC: [UNRECOGNIZED PROCEDURE] (2017-01-19 07:05)
PROC: COLONBX (2017-01-19 07:05)

== ENCOUNTER 2017-05-22 16:51 | Inpatient (IN) ==
[2017-05-22] MEDS ORDERED: SODIUM CHLORIDE 0.9% 500 ML IV STA (17:06)
[2017-05-22] MEDS ORDERED: HYDROmorphone 2 MG/1 ML VIAL IV STA (17:06)
[2017-05-22] MEDS ORDERED: ONDANSETRON 4 MG/2 ML VIAL IV STA (17:06)
[2017-05-22] MEDS ORDERED: ONDANSETRON 4 MG/2 ML VIAL ONE (17:12)
[2017-05-22] MEDS ORDERED: HYDROmorphone 2 MG/1 ML VIAL ONE (17:12)
--- NOTE | 2017-05-22 17:19 | Emergency Department Note ---
Maria C Han Gwan, am scribing for, and in the presence of, Henrique Aquino MD 17:11 . Kenia Han James D, MD, personally performed the services described in this documentation, ascribed by Michelle Lombardi in my presence, and it is both accurate and complete . Arrival - Arrival Chief Complaint: Fall ED Nursing Triage Note: pt was walking back to chair and fell. pt c/o rt hip pain Mode of Arrival: Stretcher Limitations: No Limitations Source: Patient, Old Records Reviewed, RN Notes Reviewed - History of Present Illness HPI Narrative: Patient is a 86 y/o female who present to the ED via EMS with a c/o right hip pain s/p fall at home today. Patient stated that her lights were "flickering" off and on and she got out of her chair to check her lights and she turned and fell injuring her right hip. Patient then stated that she pushed her Life Alert button and EMS arrived. She confirmed that she previously broke her left hip and had it repaired 10/16/2016 but she denies remembering the physician that repaired it. Patient then stated that she is not on any blood thinner, that she has no hx of heart disease or that she has DM. During exam, patient dispalyed some distress with palpation of injured area. No other problems/complaints reported in ED. Onset (ago): hour(s) Consistency: constant Severity: moderate Quality: sharp Allergies/Adverse Reactions: Allergies Allergy/AdvReac Type Severity Reaction Status Date / Time No Known Allergies Allergy Unverified 10/16/16 14:00 Home Medications: Home Medications Medication Instructions Recorded Confirmed Type Multivit-Min/FA/Lycopen/Lutein 1 each PO DAILY 10/16/16 01/16/17 History [Centrum Silver Tablet] Sucralfate Tab [Carafate Tab] 1 gram PO QID 10/16/16 01/16/17 History Meclizine [Antivert] 12.5 mg PO QID 01/16/17 01/16/17 History Polyethylene Glycol Powder 17 gm PO BID #1 bottle 01/19/17 Rx [Miralax] Review of System - Review of System 12 point system: reviewed and no additional remarkable complaints except as stated - Review of System Constitutional: Absent: chills, fever Eyes: Absent: discharge, pain Head/Ears/Nose/Throat: Absent: earache, epistaxis Musculoskeletal: Present: as per HPI, other (right hip pain). Absent: arm pain Medical,Surgical,& Family Hx - Medical History Cardio: History of: Hypertension Psychological: No history of: Anxiety Disorders, ADHD, Behavior Problems, Bipolar Disorder, Depression, Previous Suicide Attempt, Psychiatric/Substance Abuse Tx, Schizophrenia, Violent Behavior, Psychiatric Problems Neurology: No history of: Seizures HEENT: History of: Eye Problem (glasses) Genitourinary: History of: Kidney Stones Gastrointestinal: History of: Hemorrhoids, GI Problems (constipation) Musculoskeletal: History of: Musculoskeletal Problems (left hip fracture) - Surgical History Abdominal Surgeries: Surgical HX of: Abdominal Surgery (colon) Reproductive Surgeries: Surgical HX of;: Hysterectomy (1968) - Family History Family History: Reports;: Family Heart Disease (mother, father), Family Hypertension - Social History Smoking Status: Never smoker Frequency of Alcohol Use: None Type of Drug Use: None Exam Physical Examination: GENERAL: This is a chronically ill-appearing white female . VITAL SIGNS: HEENT: Head is normocephalic and atraumatic. Pupils are equally round and reactive to light. Extraocular movement are intact. Oropharynx is benign with moist mucous membranes. NECK: Neck is soft and supple without tenderness. There are no masses. There is no lymphadenopathy. LUNGS: Lungs are clear to auscultation bilaterally. Chest rises symmetrically. There is no chest wall tenderness. CV: Heart is regular rate and rhythm without murmurs, rubs, or gallops. ABDOMEN: Abdomen is soft, non-tender to palpation. There are no abnormal masses palpated. There is no organomegaly. Bowel sounds are present and active. SKIN: Skin is warm and dry. No rash. EXTREMITIES: Patient has tenderness to palpation overlying the right hip. There is reproducible pain with minimal range of motion of right hip. There is no pedal edema. NEUROLOGIC: Awake, alert, and oriented x4. Cranial nerves II through XII are grossly intact. There are no motorsensory deficits. PSYCHIATRIC: Normal affect. Normal mood. Vital Signs: Vital Signs Temperature 98.0 F 05/22/17 16:56 Pulse Rate 86 05/22/17 16:56 Respiratory Rate 18 05/22/17 16:56 Blood Pressure 182/79 05/22/17 16:56 O2 Sat by Pulse Oximetry 99 05/22/17 16:56 Course - Consultations Consultation #1: Discussed with Dr. Aaron Harden. Time: 17:20 Consultation #2: Discussed with hospitalist. Patient will be admitted to their service. Time: 17:20 Results - Labs Lab Results: I have reviewed the patients labs - EKG EKG results: interpreted by MANOLOD - Diagnostic Findings Procedure: Chest x-ray: image reviewed by me, X-ray: image reviewed by me ( Right hip x-ray: Intertrochanteric fracture) Disposition Clinical Impression: Intertrochanteric fracture of right hip, Fall at home Case discussed with: patient Disposition: Still a Patient Time of Disposition: 17:19
[2017-05-22] MEDS ORDERED: ONDANSETRON 4 MG/2 ML VIAL IV PRN (17:29)
--- NOTE | 2017-05-22 17:33 | XRay Report ---
XR hip 2v w pelvis RT Clinical Information: fall, hip pain Comparison: Prior abdomen radiograph 01/16/2017 Findings: There is acute mildly comminuted right intertrochanteric fracture. There is no evidence of hip dislocation. Generalized osteopenia is noted. Osseous pelvis otherwise appears intact. Left orthopedic hardware is noted at the proximal femur, which appears grossly intact. Surgical kvng noted overlying the lower abdomen/pelvis. Impression: Acute right intertrochanteric femoral neck fracture without dislocation. PROCEDURE INTERPRETED AT [facility] DEPARTMENT OF RADIOLOGY Final Report Signed by: Gilles Alanis
--- NOTE | 2017-05-22 17:34 | XRay Report ---
Exam: XR chest 1V portable Indication: Preop, shortness of breath Comparison study: Prior chest radiograph January 16, 2017 Findings: Cardiac silhouette is enlarged, similar to prior. There is no focal consolidation, pneumothorax or pleural effusion identified. Mild prominence of the interstitial lung markings is most compatible with chronic scarring, similar to prior. Impression: Mild cardiomegaly and chronic interstitial scarring. Otherwise, no evidence of active disease. PROCEDURE INTERPRETED AT [facility] DEPARTMENT OF RADIOLOGY Final Report Signed by: Gilles Alanis
[2017-05-22 17:45] LABS: Basophils # 0.1 10*3/uL (0.0-0.2); Basophils % 0.6 % (0.0-0.8); Eosinophils # 0.3 10*3/uL (0.0-0.87); Eosinophils % 2.7 % (0.00-10.9); Hematocrit 35.7 VOL% (35.7-47.0); Hemoglobin 12.1 GM/DL (12.0-16.0); Immature Granulocytes % 0.4 %; Immature Granulocytes Absolute 0.04 #; Lymphocytes # 2.9 10*3/uL (1.4-4.0); Lymphocytes % 30.7 % (21.3-54.2); Mean Corpuscular HGB Conc 33.9 GM/DL (32-36); Mean Corpuscular Hemoglobin 32 PG (27-34); Mean Corpuscular Volume 94.7 FL (87-102); Mean Platelet Volume 10.1 FL (9.6-12.0); Monocytes # 0.5 10*3/uL (0.11-0.8); Monocytes % 5.1 % (1.7-12.7); Neutrophils # 5.8 10*3/uL (1.4-7.4); Neutrophils % 60.5 % (38.7-73.9); Platelet Count 235 T/CUMM (130-400); Red Blood Count 3.77 MC/CUMM (3.8-5.5); White Blood Count 9.6 T/CUMM (4-12)
--- NOTE | 2017-05-22 17:50 | Hospitalist History & Physical ---
Assessment and Plan (1) Intertrochanteric fracture of right hip Status: Acute Assessment and plan: X-ray confirmed acute intertrochanteric femoral neck fracture without dislocation. An orthopedic consultation has been requested. Current Visit: Yes Qualifiers: Encounter type: initial encounter Fracture alignment: nondisplaced (2) Hypertension Status: Chronic Assessment and plan: The patient was grossly hypertensive at the time of ED presentation with a blood pressure recorded at 182/79. We will monitor blood pressures and treat accordingly. Current Visit: No History of Present Illness Chief complaint: Right hip pain History of present illness: This is a very pleasant 86-year-old female that presented to the ED at [facility] via EMS this afternoon for the evaluation of right hip pain. She has a medical history significant for hypertension, renal calculi, hemorrhoids, and left hip fracture. The patient has a surgical history significant for hysterectomy, colectomy, and open reduction and internal fixation of the left hip. Apparently, the patient was sitting in her living room today when suddenly her lites started to flicker. She proceeded to get up to investigate the cause of her lights flickering when she sustained a fall injuring her right hip. The patient proceeded to activate her life alert button and EMS was notified. The patient was subsequently transported to [facility] for further evaluation. The patient was assessed at the time of ED encounter. The patient was noted to be grossly hypertensive with a blood pressure recorded at 182/79. Deformity was noted to the right hip upon assessment. Labs were obtained which were essentially unremarkable. X-ray of the right pelvis and right hip was significant for acute right intertrochanteric femoral neck fracture without dislocation. Chest x-ray was significant for mild cardiomegaly and chronic interstitial scarring. After brief discussion with both Dr. Aquino and Dr. Negrete, the patient will be admitted to the hospitalist service for continuation of care. An orthopedic consultation has been requested to evaluate and assist during the clinical encounter. Home medications have been reviewed and reconciled. CODE STATUS discussed; patient is a FULL CODE. Home Medications Medication Instructions Recorded Confirmed Type Multivit-Min/FA/Lycopen/Lutein 1 each PO DAILY 10/16/16 01/16/17 History [Centrum Silver Tablet] Sucralfate Tab [Carafate Tab] 1 gram PO QID 10/16/16 01/16/17 History Meclizine [Antivert] 12.5 mg PO QID 01/16/17 01/16/17 History Allergies Allergy/AdvReac Type Severity Reaction Status Date / Time No Known Allergies Allergy Unverified 10/16/16 14:00 Medical,Surgical,& Family Hx - Medical History Cardio: History of: Hypertension Psychological: No history of: Anxiety Disorders, ADHD, Behavior Problems, Bipolar Disorder, Depression, Previous Suicide Attempt, Psychiatric/Substance Abuse Tx, Schizophrenia, Violent Behavior, Psychiatric Problems Neurology: No history of: Seizures HEENT: History of: Eye Problem (glasses) Genitourinary: History of: Kidney Stones Gastrointestinal: History of: Hemorrhoids, GI Problems (constipation) Musculoskeletal: History of: Musculoskeletal Problems (left hip fracture) - Surgical History Abdominal Surgeries: Surgical HX of: Abdominal Surgery (colon) Reproductive Surgeries: Surgical HX of;: Hysterectomy (1967) - Family History Family History: Reports;: Family Heart Disease (mother, father), Family Hypertension - Social History Smoking Status: Never smoker Have you smoked in the last 12 months: No Frequency of Alcohol Use: None Type of Drug Use: None Marital Status: Single Lives With:: Alone Functional capacity: independent ambulation 12 point system: reviewed and no additional remarkable complaints except as stated Exam - Constitutional Vitals: Period Temp Pulse Resp BP Sys/Soares Pulse Ox Last 24 Hr 98.0 F-98.0 F 86-86 18-18 182-182/79-79 99 General appearance: normal weight, no acute distress - Head Head exam: Present: normal inspection, normocephalic, atraumatic - Eye Eye exam: Present: EOMI. Absent: conjunctival injection Pupils: Present: HONG, normal accommodation - ENT ENT exam: Present: normal exam, normal external ear exam, normal oropharynx - Neck Neck exam: Present: normal inspection. Absent: lymphadenopathy, meningismus, tenderness, thyromegaly - Respiratory Respiratory exam: Present: clear to auscultation bilaterally. Absent: rales, rhonchi, stridor, wheezes - Cardiovascular Cardiovascular exam: Present: regular rate and rhythm. Absent: carotid bruit, diastolic murmur, gallop, JVD, rubs, systolic murmur - GI/Abdominal GI/Abdominal exam: Present: normal bowel sounds, soft. Absent: tenderness, rebound - Extremities Exam Extremities exam: Present: normal capillary refill, other (Deformity noted to right extremity; internal rotation and length shortening appreciated.) - Expanded Right Lower Hip exam: Present: tenderness, deformity, internal rotation, shortening Neuro vascular tendon exam: Present: no vascular compromise Gait: Present: not tested/not observed - Back Exam Back exam: Present: normal inspection - Neurological Exam Neurological exam: Present: alert, oriented X3, CN II-XII intact - Psychiatric Psychiatric exam: Present: normal affect, normal mood - Skin Skin exam: Present: normal color, warm, dry Results - Labs CBC & BMP: 05/22/17 17:26 05/22/17 17:26 Lab Results: I have reviewed the past 24 hour labs
[2017-05-22 18:01] LABS: PT Patient Result 10.2 SECS; Partial Thromboplastin Time < 21.0 SECS (0-40)
[2017-05-22 18:03] LABS: Alanine Aminotransferase 16 U/L (13-56); Albumin 3.5 G/DL (3.4-5.0); Alkaline Phosphatase 101 U/L (45-117); Aspartate Amino Transferase 18 U/L (0-37); Bilirubin,Total < 0.39 MG/DL (0.2-1.0); Blood Urea Nitrogen 13 MG/DL (7-18); Glucose 97 MG/DL (74-106); Osmolality,Calculated 276.5 MOS/KG (273-304); Potassium 3.7 MMOL/L (3.5-5.1); Sodium 139 MMOL/L (136-145); Total Protein 7.6 G/DL (6.4-8.3)
--- NOTE | 2017-05-22 18:04 | Orthopedic Consult Note ---
History of Present Illness Chief complaint: Intertrochanteric fracture right History of present illness: Ms. Arita is a 86 year old female who lives alone fell earlier today injuring her right hip she was unable to bear weight brought [place]'s emergency room where she was diagnosed with an intertrochanteric fracture to the right hip minimally displaced she has a history of previous left hip fracture within the past 1 year she recovered from that I was able to return back to independent living. She has no other complaints other than her right hip pain Examination confirms decreased range of motion about the right hip she holds the limb slightly external rotated she there is some mild ankle pain but no appreciable swelling she is able to flex and extend the ankle and foot there is no pain more distally but the tib-fib or knee. No pain about the left lower extremity are either upper extremity X-rays confirm an intertrochanteric fracture to the right hip Impression intertrochanteric fracture right Plan: I discussed with her treatment options including indications for internal fixation she is going to need a compression hip screw device I discussed with her treatment plan she is ready to have this done we will proceed in the early a.m. with compression hip screw right hip Home Medications Medication Instructions Recorded Confirmed Type Multivit-Min/FA/Lycopen/Lutein 1 each PO QAM 10/16/16 05/22/17 History [Centrum Silver Tablet] Sucralfate Tab [Carafate Tab] 1 gram PO QID 10/16/16 05/22/17 History Meclizine [Antivert] 12.5 mg PO QID 01/16/17 05/22/17 History Allergies Allergy/AdvReac Type Severity Reaction Status Date / Time No Known Allergies Allergy Unverified 10/16/16 14:00 Medical,Surgical,& Family Hx - Medical History Cardio: History of: Hypertension Psychological: No history of: Anxiety Disorders, ADHD, Behavior Problems, Bipolar Disorder, Depression, Previous Suicide Attempt, Psychiatric/Substance Abuse Tx, Schizophrenia, Violent Behavior, Psychiatric Problems Neurology: No history of: Seizures HEENT: History of: Eye Problem (glasses) Genitourinary: History of: Kidney Stones Gastrointestinal: History of: Hemorrhoids, GI Problems (constipation) Musculoskeletal: History of: Musculoskeletal Problems (left hip fracture) - Surgical History Abdominal Surgeries: Surgical HX of: Abdominal Surgery (colon) Reproductive Surgeries: Surgical HX of;: Hysterectomy (1968) - Family History Family History: Reports;: Family Heart Disease (mother, father), Family Hypertension - Social History Smoking Status: Never smoker Frequency of Alcohol Use: None Type of Drug Use: None Exam - Constitutional Vitals: Period Temp Pulse Resp BP Sys/Soares Pulse Ox Last 24 Hr 98.0 F-98.0 F 86-86 18-18 182-182/79-79 99 Results - Labs CBC & BMP: 05/22/17 17:26
[2017-05-22] MEDS ORDERED: MECLIZINE 12.5 MG TABLET PO ONE (20:17)
[2017-05-22] MEDS: MORPHINE 2 MG/1 ML SYRINGE IV PRN (21:13)
[2017-05-22] MEDS: SODIUM CHLORIDE 0.9% 1,000 ML IV SCH (21:21)
[2017-05-23] MEDS: MORPHINE 2 MG/1 ML SYRINGE IV PRN ×2 (00:51→05:02)
[2017-05-23 03:41] LABS: Basophils % 0.4 % (0.0-0.8); Eosinophils % 0.2 % (0.00-10.9); Hematocrit 31.6 VOL% (35.7-47.0); Immature Granulocytes % 0.3 %; Immature Granulocytes Absolute 0.03 #; Lymphocytes # 1.9 10*3/uL (1.4-4.0); Lymphocytes % 19.3 % (21.3-54.2); Mean Corpuscular HGB Conc 34.8 GM/DL (32-36); Mean Corpuscular Hemoglobin 32 PG (27-34); Mean Corpuscular Volume 93.2 FL (87-102); Mean Platelet Volume 10.4 FL (9.6-12.0); Monocytes % 9.8 % (1.7-12.7); NRBC # 0.02 10*3/uL; Neutrophils # 6.8 10*3/uL (1.4-7.4); Platelet Count 187 T/CUMM (130-400); Red Blood Count 3.39 MC/CUMM (3.8-5.5); Red Cell Distribution Width 13.1 % (9.3-17.3); White Blood Count 9.8 T/CUMM (4-12)
[2017-05-23] MEDS: SODIUM CHLORIDE 0.9% 1,000 ML IV SCH ×2 (06:22→20:30)
--- NOTE | 2017-05-23 07:01 | EKG Report ---
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
[2017-05-23] MEDS ORDERED: HYDROmorphone 2 MG/1 ML VIAL ONE (08:10)
[2017-05-23] MEDS ORDERED: FAMOTIDINE 20 MG/2 ML VIAL IV ONE ×2 (08:10→08:20)
[2017-05-23] MEDS: PANTOPRAZOLE 40 MG TABLET PO SCH (08:20)
[2017-05-23] MEDS ORDERED: HYDROmorphone 2 MG/1 ML VIAL IV ONE (08:21)
[2017-05-23] MEDS ORDERED: LACTULOSE 20 GM/30 ML UDCUP PO PRN (09:21)
[2017-05-23] MEDS ORDERED: PROMETHAZINE 25 MG/1 ML VIAL IM PRN (09:21)
[2017-05-23] MEDS ORDERED: MAGNESIUM HYDROXIDE SUSP 30 ML UDCUP PO PRN (09:21)
[2017-05-23] MEDS ORDERED: BISACODYL 10 MG SUPP RECTAL PRN (09:21)
[2017-05-23] MEDS ORDERED: MORPHINE 2 MG/1 ML SYRINGE IV PRN (09:25)
[2017-05-23] MEDS ORDERED: GLYCOPYRROLATE 0.4 MG/2 ML VIAL ONE (09:26)
[2017-05-23] MEDS ORDERED: KETAMINE 500 MG/10 ML VIAL ONE (10:51)
[2017-05-23] MEDS ORDERED: MIDAZOLAM 2 MG/2 ML VIAL ONE (10:51)
[2017-05-23] MEDS ORDERED: HYDROmorphone 2 MG/1 ML VIAL IV PRN (10:58)
[2017-05-23] MEDS ORDERED: ONDANSETRON 4 MG/2 ML VIAL IV PRN (10:58)
[2017-05-23] MEDS ORDERED: LACTATED RINGERS 1,000 ML IV SCH (11:00)
--- NOTE | 2017-05-23 12:17 | XRay Report ---
4 view right hip May 23, 2017 0923 hours Indication: Fracture Comparison images performed May 22, 2017 at 1708 hours Findings: Submitted interoperative static fluoroscopic images demonstrate satisfactory positioning of the dynamic compression screw stabilizing intertrochanteric fracture. No evidence for hardware failure. Submitted images were satisfactory for intended purpose. Impression: Expected postoperative appearance of right intertrochanteric fracture stabilization with dynamic compression screw PROCEDURE INTERPRETED AT [facility] DEPARTMENT OF RADIOLOGY Final Report Signed by: Lew Mahan
[2017-05-23] MEDS: MECLIZINE 12.5 MG TABLET PO SCH ×3 (12:18→20:32)
[2017-05-23] MEDS: SUCRALFATE 1 GM TABLET PO SCH ×3 (12:18→20:32)
--- NOTE | 2017-05-23 15:14 | Operative Note ---
DATE: 05/23/2017 PREOPERATIVE DIAGNOSIS: INTERTROCHANTERIC FRACTURE, RIGHT HIP. POSTOPERATIVE DIAGNOSIS: SAME. OPERATIVE PROCEDURE: COMPRESSION HIP SCREW, RIGHT. SURGEON: Henrique Walker Jr., MD ANESTHESIA: Spinal. INDICATIONS: An 86-year-old white female, fell yesterday at home. She is an ambulator sustaining a minimally displaced intertrochanteric fracture to the right hip. I have discussed preoperatively the diagnosis, treatment and recommendation including the need for internal fixation. OPERATIVE PROCEDURE: The patient was taken to the operating room and under spinal anesthetic, positi oned on the fracture table. The left leg placed on a well-padded leg lucas. The right leg was plac ed in a traction boot. Gentle traction and internal rotation was applied and fluoroscopy was brought in to confirm alignment and reduction. The hip was then prepped and draped in the usual sterile man ner. She received Ancef preoperatively. A longitudinal incision was made over the lateral aspect of the right hip. Sharp dissection was carried down through skin and subcutaneous tissue. The IT band and vastus were split and guide pin placed in the center of the femoral head. An 85 mm lag screw wit h a three-hole 130 degrees side plates were used to secure the reduction. It was secured with standa rd technique. Permanent fluoroscopy pictures were preserved for his records. The wound was then irr igated, hemostasis was verified and closed in layers using 0-Vicryl for the vastus layer as well as I T band layers. A 2-0 Vicryl was used for the subcutaneous layers, and kvng for skin. Sterile nessa ssings applied. She was moved to her bed and taken to the recovery room in stable condition. ADDENDUM: Prior to positioning, x-rays of her ankle confirmed no obvious fracture.
[2017-05-24] MEDS: SODIUM CHLORIDE 0.9% 1,000 ML IV SCH ×3 (03:31→16:42)
[2017-05-24] MEDS: FONDAPARINUX 2.5 MG/0.5 ML SYRINGE SUBCUT SCH (05:49)
[2017-05-24 07:33] LABS: Basophils % 0.3 % (0.0-0.8); Eosinophils % 0.2 % (0.00-10.9); Hematocrit 27.4 VOL% (35.7-47.0); Hemoglobin 9.2 GM/DL (12.0-16.0); Immature Granulocytes % 0.4 %; Immature Granulocytes Absolute 0.04 #; Lymphocytes # 1.2 10*3/uL (1.4-4.0); Lymphocytes % 13.2 % (21.3-54.2); Mean Corpuscular HGB Conc 33.6 GM/DL (32-36); Mean Corpuscular Hemoglobin 32 PG (27-34); Mean Corpuscular Volume 95.1 FL (87-102); Mean Platelet Volume 10.3 FL (9.6-12.0); Monocytes # 0.9 10*3/uL (0.11-0.8); Monocytes % 9.9 % (1.7-12.7); Neutrophils # 6.8 10*3/uL (1.4-7.4); Platelet Count 166 T/CUMM (130-400); Red Blood Count 2.88 MC/CUMM (3.8-5.5); Red Cell Distribution Width 12.7 % (9.3-17.3)
--- NOTE | 2017-05-24 08:21 | Orthopedic Progress Note ---
Orthopedics - Subjective Interval history: Comfortable. Dressing clean, dry and intact. She can flex extend her toes and ankles. Sensation is grossly intact to light touch. Plan: INT IV. Mobilize with physical therapy. Discharge planning. Exam - Constitutional Vitals: Period Temp Pulse Resp BP Sys/Soares Pulse Ox Last 24 Hr 97.7 F-99.1 F 68-103 16-19 138-168/53-90 95-100 Results - Labs CBC & BMP: 05/24/17 07:08 05/22/17 17:26 Specialty Discharge - Follow Up or Referrals Follow up with: Henrique Walker Jr., MD [Physician] -
[2017-05-24] MEDS: MULTIVITAMIN (CENTRUM) TABLET PO SCH (09:25)
[2017-05-24] MEDS: PANTOPRAZOLE 40 MG TABLET PO SCH (09:25)
[2017-05-24] MEDS: SUCRALFATE 1 GM TABLET PO SCH ×4 (09:25→20:40)
[2017-05-24] MEDS: MECLIZINE 12.5 MG TABLET PO SCH ×4 (09:25→20:40)
--- NOTE | 2017-05-24 09:58 | Event Note ---
late entry for 05/23/17 I saw Mrs Arita after she had returned from the OR. She was still groggy. Lungs clear, heart regular. Plan: continue post op care per ortho. Bp ok, monitor.
--- NOTE | 2017-05-24 10:00 | Hospitalist Progress Note ---
Assessment and Plan (1) post hip fracture anemia Status: Acute Assessment and plan: 1)anemia after hip fracture/surgery- monitor. HGB 9. 2)HTN- improved from admission. monitor. Not on pain meds at home. If persistently elevated despite good pain control, will start lisinopril. 3)hip fracture Current Visit: Yes (2) Hypertension Status: Chronic Current Visit: No (3) Intertrochanteric fracture of right hip Status: Acute Current Visit: Yes Qualifiers: Encounter type: initial encounter Fracture alignment: nondisplaced (4) Fall at home Status: Acute Current Visit: Yes Hospitalist: Subjective Interval history: Mrs Arita is awake and alert and complains of painin her heels from being in bed. She would like to elevate them with pillows. Also she wants to make some phone calls. Denies shortness of breath,nausea or uncontrolled pain. She anticipates going to TMR or swing bed at discharge. Exam - Constitutional Vitals: Period Temp Pulse Resp BP Sys/Soares Pulse Ox Last 24 Hr 97.7 F-99.1 F 68-103 16-19 138-168/53-90 95-100 General appearance: normal weight, no acute distress - Eye Eye exam: Present: EOMI. Absent: scleral icterus - Respiratory Respiratory exam: Present: clear to auscultation bilaterally - Cardiovascular Cardiovascular exam: Present: regular rate and rhythm - GI/Abdominal GI/Abdominal exam: Present: normal bowel sounds, soft. Absent: tenderness - Extremities Exam Extremities exam: Absent: edema (no skin breakdown on her heels, no redness, but sore when moved) - Neurological Exam Neurological exam: Present: alert, oriented X3 - Skin Skin exam: Present: warm, dry Results - Labs CBC & BMP: 05/24/17 07:08 05/22/17 17:26 Lab Results: I have reviewed the past 24 hour labs Specialty Discharge - Follow Up or Referrals Follow up with: Henrique Wakler Jr., MD [Physician] -
[2017-05-25 05:32] LABS: Basophils % 0.2 % (0.0-0.8); Eosinophils # 0.1 10*3/uL (0.0-0.87); Eosinophils % 0.8 % (0.00-10.9); Hematocrit 24.7 VOL% (35.7-47.0); Hemoglobin 8.3 GM/DL (12.0-16.0); Immature Granulocytes % 0.5 %; Immature Granulocytes Absolute 0.05 #; Lymphocytes # 1.5 10*3/uL (1.4-4.0); Lymphocytes % 15.7 % (21.3-54.2); Mean Corpuscular HGB Conc 33.6 GM/DL (32-36); Mean Corpuscular Hemoglobin 32 PG (27-34); Mean Corpuscular Volume 94.6 FL (87-102); Mean Platelet Volume 10.8 FL (9.6-12.0); Monocytes % 10.5 % (1.7-12.7); Neutrophils # 7.1 10*3/uL (1.4-7.4); Neutrophils % 72.3 % (38.7-73.9); Platelet Count 172 T/CUMM (130-400); Red Blood Count 2.61 MC/CUMM (3.8-5.5); Red Cell Distribution Width 12.6 % (9.3-17.3); White Blood Count 9.8 T/CUMM (4-12)
[2017-05-25] MEDS: SODIUM CHLORIDE 0.9% 1,000 ML IV SCH (06:12)
[2017-05-25] MEDS: FONDAPARINUX 2.5 MG/0.5 ML SYRINGE SUBCUT SCH (06:12)
--- NOTE | 2017-05-25 07:26 | Orthopedic Progress Note ---
Orthopedics - Subjective Interval history: Pain control fair H&H slightly lower continue to observe. Continue with PT. likely to rehab Sunday Exam - Constitutional Vitals: Period Temp Pulse Resp BP Sys/Soares Pulse Ox Last 24 Hr 97.8 F-99.1 F 88-116 15-20 145-158/64-76 94-96 Results - Labs CBC & BMP: 05/25/17 04:31 05/22/17 17:26 Specialty Discharge - Follow Up or Referrals Follow up with: Henrique Walker Jr., MD [Physician] -
[2017-05-25] MEDS ORDERED: TUBERCULIN SKIN TEST 0.1 ML SYRINGE INTRADERM ONE (08:16)
--- NOTE | 2017-05-25 08:17 | Case Mgmt Physician Query Form ---
TB Signs and Symptoms Screening ([place]) INSTRUCTIONS: To be completed annually on residents/staff with a significant Tuberculin Skin Test (TST) upon admission/hire or a prior significant TST. To be completed on all staff at hire. Please respond to each listed symptom with an (X) in either the "YES" or "NO" box. Do you currently have any of the following symptoms: YES NO ( ) ( x) A cough If yes, is it: ( ) Productive ( ) Non- productive ( ) ( x) Hemoptysis (spitting up blood) ( ) ( x) Chest pains ( ) ( x) Weight Loss ( ) ( x) Fever ( ) ( x) Night Sweats ( ) ( x) Weakness ( ) ( x) Loss of Appetite ( ) ( x) Difficulty Breathing If you answered YES" to any of the above questions, how long have symptoms been present? Comments: If you have any questions, please contact me. Thank you, Sindy Guerrero RN, Office : [phone] Email : [email or web address]
[2017-05-25] MEDS: MECLIZINE 12.5 MG TABLET PO SCH ×4 (08:42→21:06)
[2017-05-25] MEDS: SUCRALFATE 1 GM TABLET PO SCH ×4 (08:42→21:06)
[2017-05-25] MEDS: PANTOPRAZOLE 40 MG TABLET PO SCH (08:42)
[2017-05-25] MEDS: MULTIVITAMIN (CENTRUM) TABLET PO SCH (08:42)
--- NOTE | 2017-05-25 09:55 | Hospitalist Progress Note ---
Assessment and Plan (1) Intertrochanteric fracture of right hip Status: Acute Assessment and plan: X-ray confirmed acute intertrochanteric femoral neck fracture without dislocation. An orthopedic consultation has been requested. 05/25-postoperative day #2. [place] intact to right hip; physical therapy remains in progress. Case management has been consulted for swing bed placement. Current Visit: Yes Qualifiers: Encounter type: initial encounter Fracture alignment: nondisplaced (2) Hypertension Status: Chronic Assessment and plan: The patient was grossly hypertensive at the time of ED presentation with a blood pressure recorded at 182/79. We will monitor blood pressures and treat accordingly. Current Visit: No Hospitalist: Subjective Interval history: Patient seen and examined; chart review. No significant overnight events reported per staff. PT and OT in progress awaiting swing bed placement; possible transfer to [facility] on Sunday. Exam - Constitutional Vitals: Period Temp Pulse Resp BP Sys/Soares Pulse Ox Last 24 Hr 97.3 F-99.1 F 88-116 15-20 145-158/64-76 94-96 General appearance: normal weight, no acute distress - Head Head exam: Present: normal inspection, normocephalic - Eye Eye exam: Present: EOMI. Absent: conjunctival injection Pupils: Present: HONG, normal accommodation - ENT ENT exam: Present: normal exam, normal external ear exam, normal oropharynx - Neck Neck exam: Present: normal inspection. Absent: lymphadenopathy, meningismus, thyromegaly - Respiratory Respiratory exam: Present: clear to auscultation bilaterally. Absent: rales, rhonchi, stridor, wheezes - Cardiovascular Cardiovascular exam: Present: regular rate and rhythm. Absent: carotid bruit, diastolic murmur, gallop, JVD, rubs, systolic murmur - GI/Abdominal GI/Abdominal exam: Present: normal bowel sounds, soft - Extremities Exam Extremities exam: Present: normal inspection - Expanded Right Lower Hip exam: Present: normal inspection Upper Leg exam: Present: normal inspection Knee exam: Present: normal inspection Lower leg exam: Present: normal inspection Ankle exam: Present: normal inspection Foot/Toe exam: Present: normal inspection Neuro vascular tendon exam: Present: no vascular compromise. Absent: motor deficit Gait: Present: not tested/not observed - Back Exam Back exam: Present: normal inspection - Neurological Exam Neurological exam: Present: alert, oriented X3, CN II-XII intact - Psychiatric Psychiatric exam: Present: normal affect, normal mood - Skin Skin exam: Present: normal color, warm, dry, other ([place] intact to right) Results - Labs CBC & BMP: 05/25/17 04:31 05/22/17 17:26 Lab Results: I have reviewed the past 24 hour labs Specialty Discharge - Follow Up or Referrals Follow up with: Henrique Walker Jr., MD [Physician] -
--- NOTE | 2017-05-25 12:55 | Anesthesia Post-Op ---
Anesthesia Post OP - Post Ansesthetic Evaluation Patient seen in post op: Yes Resp: within normal limits CV: within normal limits Mental: within normal limits Temp: within normal limits [id number]: within normal limits Nausea and Vomiting: within normal limits Pain: within normal limits
[2017-05-26 03:48] LABS: Basophils % 0.3 % (0.0-0.8); Eosinophils # 0.2 10*3/uL (0.0-0.87); Hematocrit 24.1 VOL% (35.7-47.0); Hemoglobin 8.2 GM/DL (12.0-16.0); Immature Granulocytes % 0.5 %; Immature Granulocytes Absolute 0.05 #; Lymphocytes # 1.7 10*3/uL (1.4-4.0); Lymphocytes % 16.9 % (21.3-54.2); Mean Corpuscular Hemoglobin 31 PG (27-34); Mean Corpuscular Volume 92.3 FL (87-102); Mean Platelet Volume 10.5 FL (9.6-12.0); Monocytes # 0.9 10*3/uL (0.11-0.8); Monocytes % 9.3 % (1.7-12.7); Platelet Count 193 T/CUMM (130-400); Red Blood Count 2.61 MC/CUMM (3.8-5.5); Red Cell Distribution Width 12.5 % (9.3-17.3); White Blood Count 9.8 T/CUMM (4-12)
[2017-05-26 04:32] LABS: Albumin 2.1 G/DL (3.4-5.0); Calcium 7.9 MG/DL (8.5-10.1); Magnesium 1.9 MG/DL (1.8-2.4); Osmolality,Calculated 273.7 MOS/KG (273-304); Phosphorous 1.6 MG/DL (2.5-4.9); Potassium 3.5 MMOL/L (3.5-5.1)
[2017-05-26] MEDS: FONDAPARINUX 2.5 MG/0.5 ML SYRINGE SUBCUT SCH (06:15)
--- NOTE | 2017-05-26 08:46 | Orthopedic Progress Note ---
Orthopedics - Subjective Interval history: Hematocrit stable at 24 no orthostatic changes comfortable complaining only of pain when mobilizing right hip. Excepted to swing bed on Sunday continue supportive care Exam - Constitutional Vitals: Period Temp Pulse Resp BP Sys/Soares Pulse Ox Last 24 Hr 98.2 F-99.2 F 89-102 18-20 137-154/61-75 95-98 Results - Labs CBC & BMP: 05/26/17 03:04 05/26/17 03:04 Specialty Discharge - Follow Up or Referrals Follow up with: Henrique Walker Jr., MD [Physician] -
[2017-05-26] MEDS: MULTIVITAMIN (CENTRUM) TABLET PO SCH (10:13)
[2017-05-26] MEDS: SUCRALFATE 1 GM TABLET PO SCH ×4 (10:14→21:34)
[2017-05-26] MEDS: PANTOPRAZOLE 40 MG TABLET PO SCH (10:15)
[2017-05-26] MEDS: MECLIZINE 12.5 MG TABLET PO SCH ×4 (10:18→21:34)
--- NOTE | 2017-05-26 10:18 | Hospitalist Progress Note ---
Assessment and Plan (1) Intertrochanteric fracture of right hip Status: Acute Assessment and plan: X-ray confirmed acute intertrochanteric femoral neck fracture without dislocation. An orthopedic consultation has been requested. 05/25-postoperative day #2. [place] intact to right hip; physical therapy remains in progress. Case management has been consulted for swing bed placement. 05/26-postoperative day #3. [place] intact her right hip. Out of bed to chair this a.m. at the time of interview. Physical therapy remains in progress. Awaiting swing bed placement on tomorrow. Current Visit: Yes Qualifiers: Encounter type: initial encounter Fracture alignment: nondisplaced (2) Hypertension Status: Chronic Assessment and plan: The patient was grossly hypertensive at the time of ED presentation with a blood pressure recorded at 182/79. We will monitor blood pressures and treat accordingly. Current Visit: No (3) Hypophosphatemia Status: Acute Assessment and plan: Phosphorus noted at 1.6 today. We will correct deficit and recheck phosphorus level in a.m. Current Visit: Yes Hospitalist: Subjective Interval history: Patient seen and examined; chart reviewed. No significant overnight events reported per staff. Awaiting swing bed placement on Sunday. Exam - Constitutional Vitals: Period Temp Pulse Resp BP Sys/Soares Pulse Ox Last 24 Hr 98.2 F-99.2 F 89-102 18-20 137-154/61-75 95-98 General appearance: normal weight, no acute distress - Head Head exam: Present: normal inspection, normocephalic, atraumatic - Eye Eye exam: Present: EOMI. Absent: conjunctival injection Pupils: Present: HONG, normal accommodation - ENT ENT exam: Present: normal exam, normal external ear exam, normal oropharynx - Neck Neck exam: Present: normal inspection. Absent: lymphadenopathy, meningismus, thyromegaly - Respiratory Respiratory exam: Present: clear to auscultation bilaterally. Absent: rales, rhonchi, stridor, wheezes - Cardiovascular Cardiovascular exam: Present: regular rate and rhythm. Absent: carotid bruit, diastolic murmur, gallop, JVD, rubs, systolic murmur - GI/Abdominal GI/Abdominal exam: Present: normal bowel sounds, soft - Extremities Exam Extremities exam: Present: normal inspection, normal capillary refill. Absent: full ROM (Status post ORIF right hip postop day #3), edema - Expanded Right Lower Hip exam: Absent: normal inspection ([place] intact right hip) Upper Leg exam: Present: normal inspection Knee exam: Present: normal inspection Lower leg exam: Present: normal inspection Ankle exam: Present: normal inspection Foot/Toe exam: Present: normal inspection Neuro vascular tendon exam: Present: no vascular compromise Gait: Present: not tested/not observed - Back Exam Back exam: Present: normal inspection - Neurological Exam Neurological exam: Present: alert, oriented X3, CN II-XII intact - Psychiatric Psychiatric exam: Present: normal affect, normal mood - Skin Skin exam: Present: normal color, warm, dry Results - Labs CBC & BMP: 05/26/17 03:04 05/26/17 03:04 Lab Results: I have reviewed the past 24 hour labs Specialty Discharge - Follow Up or Referrals Follow up with: Henrique Walker Jr., MD [Physician] -
[2017-05-26] MEDS ORDERED: SODIUM PHOSPHATE INJ 30 MMOL in SODIUM CHLORIDE 0.9% 250 ML IV ONE (12:00)
[2017-05-27] MEDS: FONDAPARINUX 2.5 MG/0.5 ML SYRINGE SUBCUT SCH (06:32)
--- NOTE | 2017-05-27 08:24 | Orthopedic Progress Note ---
Orthopedics - Subjective Interval history: Comfortable. Feeling better. No complaints. To swing bed tomorrow. Exam - Constitutional Vitals: Period Temp Pulse Resp BP Sys/Soares Pulse Ox Last 24 Hr 97.5 F-98.4 F 87-112 17-19 127-160/51-79 94-97 Results - Labs CBC & BMP: 05/26/17 03:04 05/26/17 03:04 Specialty Discharge - Follow Up or Referrals Follow up with: Henrique Walker Jr., MD [Physician] -
--- NOTE | 2017-05-27 08:44 | Hospitalist Progress Note ---
Assessment and Plan (1) Intertrochanteric fracture of right hip Status: Acute Assessment and plan: X-ray confirmed acute intertrochanteric femoral neck fracture without dislocation. An orthopedic consultation has been requested. 05/25-postoperative day #2. Morrison intact to right hip; physical therapy remains in progress. Case management has been consulted for swing bed placement. 05/26-postoperative day #3. Morrison intact her right hip. Out of bed to chair this a.m. at the time of interview. Physical therapy remains in progress. Awaiting swing bed placement on tomorrow. 05/27-postoperative day #4. Daniel are intact to the right hip. Physical therapy and progress per MD order. Projected discharge to [facility] in a.m. Current Visit: Yes Qualifiers: Encounter type: initial encounter Fracture alignment: nondisplaced (2) Hypertension Status: Chronic Assessment and plan: The patient was grossly hypertensive at the time of ED presentation with a blood pressure recorded at 182/79. We will monitor blood pressures and treat accordingly. Current Visit: No (3) Hypophosphatemia Status: Acute Assessment and plan: Phosphorus noted at 1.6 today. We will correct deficit and recheck phosphorus level in a.m. 05/27-phosphorus noted 1.9 today; we will start Neutra-Phos 1 packet twice daily. Current Visit: Yes Hospitalist: Subjective Interval history: Patient seen and examined; chart reviewed. No significant overnight events reported per staff. Awaiting swing bed placement at [facility] on tomorrow. Exam - Constitutional Vitals: Period Temp Pulse Resp BP Sys/Soares Pulse Ox Last 24 Hr 97.5 F-98.4 F 87-112 17-19 127-160/51-79 94-97 General appearance: normal weight, no acute distress - Head Head exam: Present: normal inspection, normocephalic, atraumatic - Eye Eye exam: Present: EOMI. Absent: conjunctival injection Pupils: Present: HONG, normal accommodation - ENT ENT exam: Present: normal exam, normal external ear exam, normal oropharynx - Neck Neck exam: Present: normal inspection. Absent: lymphadenopathy, meningismus, tenderness, thyromegaly - Respiratory Respiratory exam: Present: clear to auscultation bilaterally. Absent: rales, rhonchi, stridor, wheezes - Cardiovascular Cardiovascular exam: Present: regular rate and rhythm. Absent: carotid bruit, diastolic murmur, gallop, JVD, rubs, systolic murmur - GI/Abdominal GI/Abdominal exam: Present: normal bowel sounds, soft - Extremities Exam Extremities exam: Present: normal inspection, normal capillary refill - Expanded Right Lower Hip exam: Absent: normal inspection (Daniel intact to right hip) Upper Leg exam: Present: normal inspection Knee exam: Present: normal inspection Lower leg exam: Present: normal inspection Ankle exam: Present: normal inspection Foot/Toe exam: Present: normal inspection Neuro vascular tendon exam: Present: no vascular compromise Gait: Present: not tested/not observed - Back Exam Back exam: Present: normal inspection - Neurological Exam Neurological exam: Present: alert, oriented X3, CN II-XII intact - Psychiatric Psychiatric exam: Present: normal affect, normal mood - Skin Skin exam: Present: normal color, warm, dry Results - Labs CBC & BMP: 05/26/17 03:04 05/26/17 03:04 Lab Results: I have reviewed the past 24 hour labs Specialty Discharge - Follow Up or Referrals Follow up with: Henrique Walker Jr., MD [Physician] -
[2017-05-27] MEDS: MULTIVITAMIN (CENTRUM) TABLET PO SCH (09:21)
[2017-05-27] MEDS: PANTOPRAZOLE 40 MG TABLET PO SCH (09:22)
[2017-05-27] MEDS: MECLIZINE 12.5 MG TABLET PO SCH ×4 (09:22→20:33)
[2017-05-27] MEDS: SUCRALFATE 1 GM TABLET PO SCH ×4 (09:23→20:33)
[2017-05-27] MEDS ORDERED: POLYMYXIN/TRIMETHOPRIM OPH SOL 10 ML BOTTLE RIGHT EYE SCH (10:30)
[2017-05-28] MEDS: FONDAPARINUX 2.5 MG/0.5 ML SYRINGE SUBCUT SCH (05:28)
[2017-05-28] MEDS: MULTIVITAMIN (CENTRUM) TABLET PO SCH (09:16)
[2017-05-28] MEDS: PANTOPRAZOLE 40 MG TABLET PO SCH (09:16)
[2017-05-28] MEDS: MECLIZINE 12.5 MG TABLET PO SCH (09:16)
[2017-05-28] MEDS: SUCRALFATE 1 GM TABLET PO SCH (09:17)
--- NOTE | 2017-05-28 09:31 | Discharge Summary ---
<Alisha Cornejo - Last Filed: 05/28/17 09:32> Hospital Course - Hospital Course Hospital Course: Ms Arita 86 y/o w/PMHx Hypertension, Kidney stones, Hemorrhoids presented to ED on 05/22/17 for further evaluation of c/o right hip pain after falling at home. IN ED: Hip Xray: acute right intertrochanteric fermoral neck fracture with out dislocation. CXR: mild cardiomegaly and chronic interstitial scarring. Ortho consulted for evaluation and assistance with care and proceeded with internal fixation with compression hip screw right hip. Patient recovery status post right hip internal fixation has been steady this hospitalization with good pain control and BP controlled, she will continue rehab outpatient at Swing bed. Today 05/28/17 - Patient remains stable with steady progression with recovery from right hip fracture with internal fixation. BP remains controlled. Patient is ready for discharge and per her request will be discharged to [facility] for continuation of rehab. She will need to follow up with Orthopedics with Dr Aaron Jr. She will need to follow up with Primary care physician. Further recommendations with discharge planning and care to follow per Dr Griffin. I have personally seen and examined this patient today. I agree with the above note as prepared by the advanced practice provider. I agree with the assessment and plan. The patient's home medications were reviewed and reconciled. She is a full code. She will be transferred to the long-term today once the bed is available. Specialty Discharge - Follow Up or Referrals Follow up with: Henrique Walker Jr., MD [Physician] - Discharge Plan - Discharge Data Disposition: Disch/Xfer to Snf - Discharge Medications New Fondaparinux [Arixtra] 2.5 mg SUBCUT Q24H syringe HYDROcodone/ACETAMIN 7.5-325 [Eugene 7.5-325] 1 tablet PO Q4H PRN tablet PRN Reason: Pain Moderate (4-7) Continue Sucralfate Tab [Carafate Tab] 1 gram PO QID Multivit-Min/FA/Lycopen/Lutein [Centrum Silver Tablet] 1 each PO QAM Meclizine [Antivert] 12.5 mg PO QID - Follow Up or Referral Follow Up: Henrique Walker Jr., MD [Physician] - - Forms/Instructions Exam - Constitutional Vitals: Period Temp Pulse Resp BP Sys/Soares Pulse Ox Last 24 Hr 97.1 F-98.7 F 82-90 16-20 129-159/63-87 95-99 Discharge Results Procedures and tests throughout hospitalization: Pending Orders 05/29/17 04:00 Basic Metabolic Panel IN AM CBC [Comp Blood Count Auto Diff] IN AM DS: Provider Date of admission: 05/22/17 17:27 Primary care physician: . No PCP Attending physician on admission: William Michelle MD Consults: 05/22/17 17:29 Consult to Physician [CONS] Routine Comment: Consulting Provider: Henrique Walker Jr. Consulting Provider Notified: Yes When should Consulting Provider be notified: Now Person Notified: Dr Aaron Noyola Date Notified: 05/22/17 Time Notified: 19:14 Consult Notification Comment: frederic called with room number 05/23/17 05/22/17 23:38 Consult to Pastoral Services [CONS] Routine Comment: Pastoral Screen: Request Production Broacher Visit Pastoral Screen Source of Request: Patient 05/23/17 09:21 Consult to Physical Therapy [CONS] Routine Reason for Physical Therapy: Evaluate and Treat Consult Comment: wbat on rt 05/23/17 09:25 Consult to Case Mgmt/Social Srvs [CONS] Routine Reason for Case Mgmt/Social Srvs: Home Health Rehab Equipment Consult to Occupational Therapy [CONS] Routine Reason for Occupational Therapy: Evaluate and Treat Discharging clinician: Alisha Cornejo NP <Kathryn Griffin - Last Filed: 05/28/17 10:15> Hospital Course - Time spent with patient Time with patient DS: Greater than 30 minutes (Total discharge time for this patient, including [id number] time, clinical documentation, medication reconciliation, and discharge planning was 38 minutes.) Diagnosis - Discharge Diagnosis (1) Hypertension Status: Chronic (2) DVT prophylaxis Status: Acute (3) Intertrochanteric fracture of right hip Status: Resolved (4) Postoperative anemia Status: Acute Discharge Plan - Discharge Data Condition at Discharge: Stable Discharge Diet: advance to your usual diet Activity: as per physical therapy Contact your physician if you experience:: fever over 101, Difficulty voiding, Bleeding, pain uncontrolled by pain medications DS: Provider Expected date of discharge: 05/28/17
--- NOTE | 2017-05-28 09:32 | Orthopedic Progress Note ---
Orthopedics - Subjective Interval history: Comfortable dressing dry instructed will check x-ray on swing bed. Discussed Exam - Constitutional Vitals: Period Temp Pulse Resp BP Sys/Soares Pulse Ox Last 24 Hr 97.1 F-98.7 F 82-90 16-20 129-159/63-87 95-99 Results - Labs CBC & BMP: 05/26/17 03:04 05/26/17 03:04 Specialty Discharge - Follow Up or Referrals Follow up with: Henrique Walker Jr., MD [Physician] -
[2017-05-28 11:30] VITALS: BP 144/62
== END 2017-05-28 13:04 | DRG 482 ==
LOC: EDBD → EDUNIT# → N.ED 16:51 → SUATTDRO 17:27 → N.EDINP 17:27 → N.3E 19:07
PROVIDERS: ADMIT Family Medicine; ATTEND Family Medicine

== ENCOUNTER 2018-05-14 06:01 | Inpatient (IN) ==
[2018-05-14] MEDS ORDERED: VANCOMYCIN 1,000 MG VIAL ONE (06:05)
[2018-05-14] MEDS ORDERED: CLINDAMYCIN INJ 50 ML IV ONE (06:05)
[2018-05-14] MEDS ORDERED: LACTATED RINGERS 1,000 ML IV SCH ×2 (06:30→10:30)
[2018-05-14] MEDS ORDERED: FAMOTIDINE 20 MG TABLET PO ONE (07:00)
[2018-05-14] MEDS ORDERED: ACETAMINOPHEN 500 MG TABLET PO ONE (07:00)
[2018-05-14] MEDS ORDERED: ACETAMINOPHEN 500 MG TABLET ONE (08:11)
[2018-05-14] MEDS ORDERED: FAMOTIDINE 20 MG TABLET ONE (08:11)
[2018-05-14] MEDS ORDERED: CLINDAMYCIN INJ 900 MG in PREMIX 1 EACH IV ONE (09:00)
[2018-05-14] MEDS ORDERED: VANCOMYCIN INJ 1,000 MG in SODIUM CHLORIDE 0.9% 250 ML IV ONE (09:00)
[2018-05-14] MEDS ORDERED: BUPIVACAINE SPINAL 0.75% 2 ML AMP SPINAL ONE (09:45)
[2018-05-14] MEDS ORDERED: ROPIVACAINE 0.5% 30 ML VIAL ONE (09:45)
[2018-05-14] MEDS ORDERED: ONDANSETRON 4 MG/2 ML VIAL IV PRN (10:11)
[2018-05-14] MEDS ORDERED: HYDROmorphone 2 MG/1 ML VIAL IV PRN (10:11)
[2018-05-14] MEDS ORDERED: NALOXONE 0.4 MG/ML VIAL IV PRN (10:11)
[2018-05-14] MEDS ORDERED: MORPHINE 4 MG/1 ML VIAL IV PRN ×2 (10:39)
[2018-05-14] MEDS ORDERED: oxyCODONE IR 5 MG TABLET PO PRN ×2 (10:39)
[2018-05-14] MEDS ORDERED: ZALEPLON 5 MG CAPSULE PO PRN (10:39)
[2018-05-14] MEDS ORDERED: MAGNESIUM HYDROXIDE SUSP 30 ML UDCUP PO PRN (10:39)
[2018-05-14] MEDS ORDERED: KETOROLAC 15 MG/1 ML VIAL IV SCH (11:00)
[2018-05-14] MEDS ORDERED: BACITRACIN OINT 0.9 GM PACK TOP ONE (11:34)
[2018-05-14] MEDS ORDERED: fentaNYL 100 MCG/2 ML VIAL ONE (12:57)
[2018-05-14] MEDS ORDERED: DEXAMETHASONE 10 MG/1 ML VIAL ONE (12:57)
[2018-05-14] MEDS ORDERED: MIDAZOLAM 2 MG/2 ML VIAL ONE (12:57)
[2018-05-14] MEDS ORDERED: PROPOFOL 500 MG/50 ML BOTTLE IV ONE (12:58)
[2018-05-14] MEDS ORDERED: TRANEXAMIC ACID 1,000 MG/10 ML VIAL ONE (12:58)
[2018-05-14] MEDS ORDERED: PHENYLEPHRINE 10 MG/1 ML VIAL IV ONE (12:58)
[2018-05-14] MEDS ORDERED: SODIUM CHLORIDE 0.9% 100 ML IV ONE (12:58)
[2018-05-14] MEDS ORDERED: PHENYLEPHRINE 1 MG/10 ML SYRINGE IV ONE (12:58)
[2018-05-14 13:26] LABS: Apearance,Urine CLEAR (Clear); Bacteria,Urine Occasional /HPF (Few); Bilirubin,Urine Negative (Negative); Blood, Urine Negative (Negative); Glucose,Urine (UA) Negative (Negative); Ketones,Urine Negative (Negative); Mucus,Urine Occasional /LPF (Occasional); Nitrite,Urine Negative (Negative); Protein,Urine Negative; RBC,Urine 1 /HPF (0-4); Urine Color Yellow (Yellow); Urine Specific Gravity 1.014 (1.001-1.035); Urine Urobilinogen < 2.0 EU/DL (0.2-1.0); WBC,Urine 1 /HPF (0-6)
[2018-05-14] MEDS: ACETAMINOPHEN 500 MG TABLET PO SCH ×2 (14:22→20:46)
[2018-05-14] MEDS: SUCRALFATE 1 GM TABLET PO SCH ×3 (14:23→20:46)
[2018-05-14] MEDS: MECLIZINE 25 MG TABLET PO SCH ×3 (14:23→20:46)
[2018-05-14] MEDS: KETOROLAC 15 MG/1 ML VIAL IV SCH ×2 (14:23→20:47)
[2018-05-14] MEDS: CLINDAMYCIN INJ 900 MG in PREMIX 1 EACH IV SCH ×2 (16:49→23:38)
[2018-05-14] MEDS: LACTATED RINGERS 1,000 ML IV SCH (18:21)
[2018-05-14] MEDS: DOCUSATE SODIUM 100 MG CAPSULE PO SCH (20:46)
[2018-05-15] MEDS: KETOROLAC 15 MG/1 ML VIAL IV SCH ×2 (03:24→09:25)
[2018-05-15] MEDS: ACETAMINOPHEN 500 MG TABLET PO SCH ×2 (03:24→09:26)
[2018-05-15] MEDS: FONDAPARINUX 2.5 MG/0.5 ML SYRINGE SUBCUT SCH (05:16)
[2018-05-15] MEDS: LACTATED RINGERS 1,000 ML IV SCH (05:16)
[2018-05-15 06:49] LABS: Basophils % 0.1 % (0.0-0.8); Hemoglobin 9.7 GM/DL (12.0-16.0); Immature Granulocytes % 0.5 %; Immature Granulocytes Absolute 0.05 #; Lymphocytes # 1.1 10*3/uL (1.4-4.0); Lymphocytes % 10.9 % (21.3-54.2); Mean Corpuscular HGB Conc 34.6 GM/DL (32-36); Mean Corpuscular Hemoglobin 33 PG (27-34); Mean Corpuscular Volume 94.3 FL (87-102); Mean Platelet Volume 10.3 FL (9.6-12.0); Monocytes # 0.8 10*3/uL (0.11-0.8); Monocytes % 7.8 % (1.7-12.7); NRBC # 0.02 10*3/uL; Neutrophils # 7.9 10*3/uL (1.4-7.4); Neutrophils % 80.7 % (38.7-73.9); Platelet Count 223 T/CUMM (130-400); Red Blood Count 2.97 MC/CUMM (3.8-5.5); Red Cell Distribution Width 12.7 % (9.3-17.3); White Blood Count 9.8 T/CUMM (4-12)
[2018-05-15 07:23] LABS: Calcium 8.4 MG/DL (8.5-10.1); Osmolality,Calculated 271.2 MOS/KG (273-304); Potassium 4.3 MMOL/L (3.5-5.1)
[2018-05-15] MEDS: MULTIVITAMIN (CENTRUM) TABLET PO SCH (09:26)
[2018-05-15] MEDS: DOCUSATE SODIUM 100 MG CAPSULE PO SCH ×2 (09:26→19:46)
[2018-05-15] MEDS: MECLIZINE 25 MG TABLET PO SCH ×4 (09:26→19:46)
[2018-05-15] MEDS: SUCRALFATE 1 GM TABLET PO SCH ×4 (09:26→19:46)
[2018-05-16] MEDS: FONDAPARINUX 2.5 MG/0.5 ML SYRINGE SUBCUT SCH (05:55)
[2018-05-16 06:39] LABS: Basophils % 0.3 % (0.0-0.8); Eosinophils # 0.1 10*3/uL (0.0-0.87); Eosinophils % 0.7 % (0.00-10.9); Hematocrit 28.1 VOL% (35.7-47.0); Hemoglobin 9.5 GM/DL (12.0-16.0); Immature Granulocytes % 0.5 %; Immature Granulocytes Absolute 0.05 #; Lymphocytes # 1.8 10*3/uL (1.4-4.0); Lymphocytes % 18.5 % (21.3-54.2); Mean Corpuscular HGB Conc 33.8 GM/DL (32-36); Mean Corpuscular Hemoglobin 33 PG (27-34); Mean Corpuscular Volume 96.6 FL (87-102); Mean Platelet Volume 10.1 FL (9.6-12.0); Monocytes # 0.8 10*3/uL (0.11-0.8); Monocytes % 8.1 % (1.7-12.7); Neutrophils # 7.1 10*3/uL (1.4-7.4); Neutrophils % 71.9 % (38.7-73.9); Platelet Count 200 T/CUMM (130-400); Red Blood Count 2.91 MC/CUMM (3.8-5.5); Red Cell Distribution Width 13.1 % (9.3-17.3); White Blood Count 9.8 T/CUMM (4-12)
[2018-05-16] MEDS: MULTIVITAMIN (CENTRUM) TABLET PO SCH (10:05)
[2018-05-16] MEDS: DOCUSATE SODIUM 100 MG CAPSULE PO SCH ×2 (10:05→20:21)
[2018-05-16] MEDS: SUCRALFATE 1 GM TABLET PO SCH ×4 (10:05→20:21)
[2018-05-16] MEDS: MECLIZINE 25 MG TABLET PO SCH ×4 (10:05→20:21)
[2018-05-16] MEDS ORDERED: TUBERCULIN SKIN TEST 0.1 ML SYRINGE INTRADERM ONE (11:00)
[2018-05-17] MEDS: FONDAPARINUX 2.5 MG/0.5 ML SYRINGE SUBCUT SCH (06:06)
[2018-05-17 06:25] LABS: Basophils % 0.2 % (0.0-0.8); Eosinophils # 0.1 10*3/uL (0.0-0.87); Eosinophils % 0.7 % (0.00-10.9); Hematocrit 26.9 VOL% (35.7-47.0); Hemoglobin 8.8 GM/DL (12.0-16.0); Immature Granulocytes % 0.6 %; Immature Granulocytes Absolute 0.06 #; Lymphocytes # 1.8 10*3/uL (1.4-4.0); Mean Corpuscular HGB Conc 32.7 GM/DL (32-36); Mean Corpuscular Hemoglobin 33 PG (27-34); Mean Corpuscular Volume 99.6 FL (87-102); Monocytes # 0.9 10*3/uL (0.11-0.8); Monocytes % 8.2 % (1.7-12.7); Neutrophils # 7.6 10*3/uL (1.4-7.4); Neutrophils % 73.3 % (38.7-73.9); Platelet Count 212 T/CUMM (130-400); Red Cell Distribution Width 13.2 % (9.3-17.3); White Blood Count 10.4 T/CUMM (4-12)
[2018-05-17] MEDS: MECLIZINE 25 MG TABLET PO SCH ×2 (10:53→18:47)
[2018-05-17] MEDS: MULTIVITAMIN (CENTRUM) TABLET PO SCH (10:55)
[2018-05-17] MEDS: SUCRALFATE 1 GM TABLET PO SCH ×2 (10:55→18:47)
[2018-05-17] MEDS: DOCUSATE SODIUM 100 MG CAPSULE PO SCH (10:55)
[2018-05-17 12:16] VITALS: BP 149/80
== END 2018-05-17 13:50 | DRG 470 ==
LOC: N.OR 06:01 → N.SDSINP 06:03 → N.3E 10:40
PROVIDERS: ADMIT Orthopaedic Surgery; ATTEND Orthopaedic Surgery

== ENCOUNTER 2019-01-25 11:28 | Inpatient (IN) ==
[2019-01-25 12:31] LABS: Apearance,Urine Slightly Hazy (Clear); Bacteria,Urine Many /HPF (Few); Bilirubin,Urine Negative (Negative); Blood, Urine Small mg/dL (Negative); Glucose,Urine (UA) Negative (Negative); Ketones,Urine Negative (Negative); Mucus,Urine Occasional /LPF (Occasional); Nitrite,Urine Negative (Negative); Protein,Urine Negative; RBC,Urine 1 /HPF (0-4); Urine Specific Gravity 1.012 (1.001-1.035); Urine Urobilinogen < 2.0 EU/DL (0.2-1.0); WBC,Urine 4 /HPF (0-6)
[2019-01-25 12:38] LABS: Basophils # 0.1 10*3/uL (0.0-0.2); Basophils % 0.4 % (0.0-0.8); Eosinophils # 0.1 10*3/uL (0.0-0.87); Eosinophils % 0.8 % (0.00-10.9); Hematocrit 38.8 VOL% (35.7-47.0); Hemoglobin 12.5 GM/DL (12.0-16.0); Immature Granulocytes % 0.5 %; Immature Granulocytes Absolute 0.06 #; Lymphocytes # 1.3 10*3/uL (1.4-4.0); Lymphocytes % 10.9 % (21.3-54.2); Mean Corpuscular HGB Conc 32.2 GM/DL (32-36); Mean Corpuscular Volume 98.2 FL (87-102); Mean Platelet Volume 9.5 FL (9.6-12.0); Monocytes % 5.6 % (1.7-12.7); Neutrophils % 81.8 % (38.7-73.9); Platelet Count 263 T/CUMM (130-400); Red Blood Count 3.95 MC/CUMM (3.8-5.5); Red Cell Distribution Width 12.5 % (9.3-17.3); White Blood Count 12.2 T/CUMM (4-12)
[2019-01-25 12:58] LABS: Urine Color Yellow (Yellow)
[2019-01-25 13:10] LABS: Albumin 3.8 G/DL (3.4-5.0); Bilirubin,Total 0.5 MG/DL (0.2-1.0); Calcium 9.1 MG/DL (8.5-10.1); Osmolality,Calculated 272.8 MOS/KG (273-304); Total Protein 7.2 G/DL (6.4-8.3)
[2019-01-25] MEDS ORDERED: SODIUM CHLORIDE 0.9% 500 ML IV STA (14:28)
[2019-01-25] MEDS ORDERED: ACETAMINOPHEN 325 MG TABLET PO PRN (15:42)
[2019-01-25] MEDS ORDERED: ONDANSETRON 4 MG/2 ML VIAL IV PRN (15:42)
[2019-01-25] MEDS: SODIUM CHLORIDE 0.9% 1,000 ML IV SCH ×2 (17:37→22:44)
[2019-01-25] MEDS: ENOXAPARIN 40 MG/0.4 ML SYRINGE SUBCUT SCH (17:38)
[2019-01-25] MEDS: BISACODYL 10 MG SUPP RECTAL ONE ×2 (17:38→18:21)
[2019-01-25] MEDS ORDERED: MAGNESIUM HYDROXIDE SUSP 30 ML UDCUP PO ONE (18:04)
[2019-01-25] MEDS ORDERED: SODIUM PHOSPHATE ENEMA 133 ML BOTTLE RECTAL ONE (18:21)
[2019-01-25] MEDS: POLYETHYLENE GLYCOL POWDER 17 GM PACK PO SCH (22:44)
[2019-01-26] MEDS: VANCOMYCIN 50 MG/ML 60 ML/BOTTLE PO SCH ×4 (00:10→17:01)
[2019-01-26 05:27] LABS: Basophils % 0.3 % (0.0-0.8); Eosinophils # 0.1 10*3/uL (0.0-0.87); Eosinophils % 0.8 % (0.00-10.9); Hematocrit 37.4 VOL% (35.7-47.0); Hemoglobin 12.2 GM/DL (12.0-16.0); Immature Granulocytes % 0.4 %; Immature Granulocytes Absolute 0.04 #; Lymphocytes # 1.5 10*3/uL (1.4-4.0); Lymphocytes % 16.1 % (21.3-54.2); Mean Corpuscular HGB Conc 32.6 GM/DL (32-36); Mean Corpuscular Volume 96.6 FL (87-102); Monocytes % 7.7 % (1.7-12.7); Neutrophils % 74.7 % (38.7-73.9); Platelet Count 239 T/CUMM (130-400); Red Blood Count 3.87 MC/CUMM (3.8-5.5); Red Cell Distribution Width 12.5 % (9.3-17.3); White Blood Count 9.1 T/CUMM (4-12)
[2019-01-26 05:56] LABS: Calcium 8.7 MG/DL (8.5-10.1); Osmolality,Calculated 275.5 MOS/KG (273-304)
[2019-01-26] MEDS: SODIUM CHLORIDE 0.9% 1,000 ML IV SCH ×3 (07:25→18:24)
[2019-01-26] MEDS: POLYETHYLENE GLYCOL POWDER 17 GM PACK PO SCH ×3 (08:12→21:36)
[2019-01-26] MEDS: PANTOPRAZOLE 40 MG VIAL IV SCH (08:12)
[2019-01-26] MEDS ORDERED: BISACODYL 10 MG SUPP RECTAL ONE (09:35)
[2019-01-26] MEDS: CIPROFLOXACIN INJ 400 MG in PREMIX 1 EACH IV SCH (17:01)
[2019-01-26] MEDS: ENOXAPARIN 40 MG/0.4 ML SYRINGE SUBCUT SCH (17:01)
[2019-01-27] MEDS: VANCOMYCIN 50 MG/ML 60 ML/BOTTLE PO SCH ×4 (00:04→18:30)
[2019-01-27] MEDS: CIPROFLOXACIN INJ 400 MG in PREMIX 1 EACH IV SCH ×2 (05:32→17:33)
[2019-01-27] MEDS: PANTOPRAZOLE 40 MG VIAL IV SCH (08:59)
[2019-01-27] MEDS: POLYETHYLENE GLYCOL POWDER 17 GM PACK PO SCH ×3 (09:00→20:44)
[2019-01-27] MEDS: MECLIZINE 25 MG TABLET PO SCH ×3 (13:05→20:44)
[2019-01-27] MEDS ORDERED: ERGOCALCIFEROL 50,000 UNIT CAPSULE PO SCH (14:00)
[2019-01-27] MEDS: ENOXAPARIN 40 MG/0.4 ML SYRINGE SUBCUT SCH (17:32)
[2019-01-27] MEDS: SODIUM CHLORIDE 0.9% 1,000 ML IV SCH (20:59)
[2019-01-28] MEDS: VANCOMYCIN 50 MG/ML 60 ML/BOTTLE PO SCH ×4 (00:01→17:51)
[2019-01-28] MEDS: CIPROFLOXACIN INJ 400 MG in PREMIX 1 EACH IV SCH ×2 (03:25→15:29)
[2019-01-28] MEDS: ONDANSETRON 4 MG/2 ML VIAL IV PRN ×2 (05:30→15:27)
[2019-01-28] MEDS ORDERED: LINACLOTIDE 145 MCG CAPSULE PO SCH ×2 (07:30→10:05)
[2019-01-28] MEDS ORDERED: PROMETHAZINE 25 MG/1 ML VIAL IM ONE (08:44)
[2019-01-28] MEDS ORDERED: MINERAL OIL 30 ML UDCUP PO ONE (10:03)
[2019-01-28] MEDS ORDERED: MINERAL OIL ENEMA 133 ML BOTTLE RECTAL ONE (10:03)
[2019-01-28] MEDS: SODIUM CHLORIDE 0.9% 1,000 ML IV SCH (10:17)
[2019-01-28] MEDS: MECLIZINE 25 MG TABLET PO SCH ×4 (10:19→21:21)
[2019-01-28] MEDS: POLYETHYLENE GLYCOL POWDER 17 GM PACK PO SCH ×3 (10:24→21:18)
[2019-01-28] MEDS: PANTOPRAZOLE 40 MG VIAL IV SCH (10:24)
[2019-01-28] MEDS ORDERED: LINACLOTIDE 145 MCG CAPSULE PO ONE (10:30)
[2019-01-28] MEDS: DOCUSATE/SENNA 50-8.6 MG TABLET PO SCH ×2 (11:52→21:18)
[2019-01-28] MEDS: LACTULOSE 20 GM/30 ML UDCUP PO SCH ×3 (15:26→21:18)
[2019-01-28] MEDS: ENOXAPARIN 40 MG/0.4 ML SYRINGE SUBCUT SCH (15:28)
[2019-01-28 18:01] LABS: CDT Result Positive (Negative); CDT Specimen Source STOOL
[2019-01-29] MEDS: VANCOMYCIN 50 MG/ML 60 ML/BOTTLE PO SCH ×4 (00:08→17:10)
[2019-01-29] MEDS: SODIUM CHLORIDE 0.9% 1,000 ML IV SCH ×3 (01:23→14:48)
[2019-01-29] MEDS: LACTULOSE 20 GM/30 ML UDCUP PO SCH ×3 (01:39→11:32)
[2019-01-29] MEDS: CIPROFLOXACIN INJ 400 MG in PREMIX 1 EACH IV SCH (04:39)
[2019-01-29 05:18] LABS: Calcium 8.2 MG/DL (8.5-10.1); Osmolality,Calculated 272.1 MOS/KG (273-304)
[2019-01-29] MEDS: ONDANSETRON 4 MG/2 ML VIAL IV PRN ×2 (05:26→09:45)
[2019-01-29 08:10] LABS: Basophils % 0.3 % (0.0-0.8); Eosinophils # 0.1 10*3/uL (0.0-0.87); Eosinophils % 0.7 % (0.00-10.9); Hematocrit 35.4 VOL% (35.7-47.0); Hemoglobin 11.8 GM/DL (12.0-16.0); Immature Granulocytes % 0.6 %; Immature Granulocytes Absolute 0.06 #; Lymphocytes # 1.1 10*3/uL (1.4-4.0); Lymphocytes % 10.3 % (21.3-54.2); Mean Corpuscular HGB Conc 33.3 GM/DL (32-36); Mean Platelet Volume 10.7 FL (9.6-12.0); Monocytes % 9.3 % (1.7-12.7); Neutrophils % 78.8 % (38.7-73.9); Platelet Count 279 T/CUMM (130-400); Red Blood Count 3.65 MC/CUMM (3.8-5.5); Red Cell Distribution Width 12.7 % (9.3-17.3); White Blood Count 10.5 T/CUMM (4-12)
[2019-01-29 08:47] LABS: Calcium 8.4 MG/DL (8.5-10.1); Osmolality,Calculated 268.5 MOS/KG (273-304)
[2019-01-29] MEDS: PANTOPRAZOLE 40 MG VIAL IV SCH (09:45)
[2019-01-29] MEDS ORDERED: GLUCAGON 1 MG VIAL IM PRN (11:18)
[2019-01-29] MEDS ORDERED: DEXTROSE 50% 25 GM/50 ML VIAL IV PRN (11:18)
[2019-01-29] MEDS ORDERED: DEXTROSE 10% 1,000 ML IV PRN (11:18)
[2019-01-29] MEDS: POLYETHYLENE GLYCOL POWDER 17 GM PACK PO SCH (11:28)
[2019-01-29] MEDS: MECLIZINE 25 MG TABLET PO SCH (11:28)
[2019-01-29] MEDS: DOCUSATE/SENNA 50-8.6 MG TABLET PO SCH (11:33)
[2019-01-29] MEDS: ENOXAPARIN 30 MG/0.3 ML SYRINGE SUBCUT SCH (11:42)
[2019-01-29] MEDS ORDERED: SODIUM CHLORIDE 0.9% 500 ML IV SCH (13:30)
[2019-01-29] MEDS ORDERED: PHENOL 1.4% THROAT SPRAY 177 ML BOTTLE PO PRN (14:22)
[2019-01-29] MEDS: AMINO ACIDS/DEXT/LYTES 4.25-5% 1,000 ML IV SCH (18:35)
[2019-01-30] MEDS: VANCOMYCIN 50 MG/ML 60 ML/BOTTLE PO SCH ×4 (01:04→17:42)
[2019-01-30 04:28] LABS: Calcium 7.8 MG/DL (8.5-10.1); Prealbumin 9.6 MG/DL (20-40)
[2019-01-30] MEDS: SODIUM CHLORIDE 0.9% 1,000 ML IV SCH ×2 (05:23→09:52)
[2019-01-30] MEDS: cefTRIAXone 1,000 MG in SYRINGE 1 EACH IV SCH (12:22)
[2019-01-30] MEDS: ENOXAPARIN 30 MG/0.3 ML SYRINGE SUBCUT SCH (12:23)
[2019-01-30] MEDS: PANTOPRAZOLE 40 MG VIAL IV SCH (12:24)
[2019-01-30] MEDS: SODIUM BICARB INJ 150 MEQ in DEXTROSE 5% 850 ML IV SCH (14:14)
[2019-01-30 14:42] LABS: Protein/Creatinine Ratio,Urine 0.5 RATIO
[2019-01-30] MEDS: FAMOTIDINE 20 MG TABLET PO SCH (17:20)
[2019-01-30] MEDS: ALBUMIN 25% 12.5 GM in PREMIX 1 EACH IV SCH (17:22)
[2019-01-30] MEDS: AMINO ACIDS/DEXT/LYTES 4.25-5% 1,000 ML IV SCH (18:01)
[2019-01-31] MEDS: ALBUMIN 25% 12.5 GM in PREMIX 1 EACH IV SCH ×4 (00:35→23:48)
[2019-01-31] MEDS: VANCOMYCIN 50 MG/ML 60 ML/BOTTLE PO SCH ×5 (00:35→23:50)
[2019-01-31] MEDS: SODIUM BICARB INJ 150 MEQ in DEXTROSE 5% 850 ML IV SCH ×3 (00:45→20:54)
[2019-01-31 06:13] LABS: Albumin 2.5 G/DL (3.4-5.0); Calcium 7.6 MG/DL (8.5-10.1); Osmolality,Calculated 287.8 MOS/KG (273-304)
[2019-01-31] MEDS: FAMOTIDINE 20 MG TABLET PO SCH (09:21)
[2019-01-31] MEDS: cefTRIAXone 1,000 MG in SYRINGE 1 EACH IV SCH (11:53)
[2019-01-31] MEDS: DOCUSATE SODIUM 100 MG CAPSULE PO SCH (11:56)
[2019-01-31] MEDS: POLYETHYLENE GLYCOL POWDER 17 GM PACK PO SCH (11:56)
[2019-01-31] MEDS: ENOXAPARIN 30 MG/0.3 ML SYRINGE SUBCUT SCH (12:20)
[2019-01-31] MEDS: methylPREDNISolone SOD SUC 40 MG/1 ML VIAL IV SCH ×2 (13:13→23:46)
[2019-01-31] MEDS: LACTULOSE 20 GM/30 ML UDCUP PO SCH ×2 (13:47→17:16)
[2019-01-31] MEDS: AMINO ACIDS/DEXT/LYTES 4.25-5% 1,000 ML IV SCH (17:17)
[2019-02-01] MEDS: DOCUSATE SODIUM 100 MG CAPSULE PO SCH ×3 (00:35→21:30)
[2019-02-01] MEDS: LACTULOSE 20 GM/30 ML UDCUP PO SCH ×4 (00:35→10:41)
[2019-02-01] MEDS: POLYETHYLENE GLYCOL POWDER 17 GM PACK PO SCH ×2 (00:35→10:40)
[2019-02-01] MEDS ORDERED: ALBUTEROL 1.25 MG/3 ML NEB RESP TX PRN (05:23)
[2019-02-01] MEDS ORDERED: NITROGLYCERIN SL 0.4 MG TABLET SL ONE ×2 (05:43→05:45)
[2019-02-01] MEDS ORDERED: ASPIRIN CHEW 81 MG TABLET PO ONE (05:49)
[2019-02-01] MEDS ORDERED: MORPHINE 4 MG/1 ML VIAL ONE (05:57)
[2019-02-01] MEDS ORDERED: HEPARIN DRIP 25,000 UNITS/500 ML PREMIX IV SCH (06:30)
[2019-02-01 06:37] LABS: Albumin 3.2 G/DL (3.4-5.0); Calcium 7.8 MG/DL (8.5-10.1); Osmolality,Calculated 287.2 MOS/KG (273-304)
[2019-02-01] MEDS: cloNIDine 0.1 MG TABLET PO PRN (07:36)
[2019-02-01] MEDS: VANCOMYCIN 50 MG/ML 60 ML/BOTTLE PO SCH ×3 (07:36→19:23)
[2019-02-01] MEDS ORDERED: cloNIDine 0.2 MG/24 HR PATCH TRANSDERM SCH (10:00)
[2019-02-01] MEDS: ALBUMIN 25% 12.5 GM in PREMIX 1 EACH IV SCH ×2 (10:18→16:08)
[2019-02-01] MEDS: FAMOTIDINE 20 MG TABLET PO SCH (10:24)
[2019-02-01] MEDS: cefTRIAXone 1,000 MG in SYRINGE 1 EACH IV SCH (10:42)
[2019-02-01 11:31] LABS: Apearance,Urine CLEAR (Clear); Bacteria,Urine Occasional /HPF (Few); Bilirubin,Urine Negative (Negative); Blood, Urine Moderate mg/dL (Negative); Glucose,Urine (UA) Negative (Negative); Ketones,Urine Negative (Negative); Mucus,Urine Occasional /LPF (Occasional); Nitrite,Urine Negative (Negative); Protein,Urine Negative; RBC,Urine 1 /HPF (0-4); Squamous Epithelial Cell,Urine Occasional /HPF (0-10); Urine Color Straw (Yellow); Urine Specific Gravity 1.006 (1.001-1.035); Urine Urobilinogen < 2.0 EU/DL (0.2-1.0); WBC,Urine 1 /HPF (0-6)
[2019-02-01] MEDS: SODIUM BICARB INJ 150 MEQ in DEXTROSE 5% 850 ML IV SCH (12:59)
[2019-02-01] MEDS: methylPREDNISolone SOD SUC 40 MG/1 ML VIAL IV SCH (12:59)
[2019-02-01] MEDS: AMINO ACIDS/DEXT/LYTES 4.25-5% 1,000 ML IV SCH (18:31)
[2019-02-02] MEDS: methylPREDNISolone SOD SUC 40 MG/1 ML VIAL IV SCH ×3 (01:36→23:08)
[2019-02-02] MEDS: VANCOMYCIN 50 MG/ML 60 ML/BOTTLE PO SCH ×5 (01:39→23:14)
[2019-02-02] MEDS: ALBUMIN 25% 12.5 GM in PREMIX 1 EACH IV SCH ×2 (01:46→07:56)
[2019-02-02 06:18] LABS: Calcium 7.6 MG/DL (8.5-10.1); Osmolality,Calculated 291.2 MOS/KG (273-304)
[2019-02-02] MEDS: DOCUSATE SODIUM 100 MG CAPSULE PO SCH ×2 (08:31→20:26)
[2019-02-02] MEDS: FAMOTIDINE 20 MG TABLET PO SCH (08:31)
[2019-02-02] MEDS: AMINO ACIDS/DEXT/LYTES 4.25-5% 1,000 ML IV SCH (16:38)
[2019-02-03] MEDS: SODIUM BICARB INJ 150 MEQ in DEXTROSE 5% 850 ML IV SCH (02:58)
[2019-02-03 05:41] LABS: Albumin 2.8 G/DL (3.4-5.0); Calcium 7.2 MG/DL (8.5-10.1); Osmolality,Calculated 298.4 MOS/KG (273-304)
[2019-02-03] MEDS: VANCOMYCIN 50 MG/ML 60 ML/BOTTLE PO SCH ×2 (06:38→12:53)
[2019-02-03] MEDS: FAMOTIDINE 20 MG TABLET PO SCH (08:03)
[2019-02-03] MEDS: DOCUSATE SODIUM 100 MG CAPSULE PO SCH (08:04)
[2019-02-03] MEDS: cloNIDine 0.1 MG TABLET PO PRN (08:04)
[2019-02-03] MEDS ORDERED: SODIUM CHLORIDE 23.4% CONC INJ 38.5 MEQ, SODIUM BICARB INJ 50 MEQ in STERILE WATER INJ ... IV SCH (09:00)
[2019-02-03] MEDS: methylPREDNISolone SOD SUC 40 MG/1 ML VIAL IV SCH (10:40)
[2019-02-03] MEDS: SODIUM CHLORIDE 23.4% CONC INJ 38.5 MEQ, SODIUM BICARB INJ 100 MEQ in STERILE WATER INJ... IV SCH (11:31)
[2019-02-03] MEDS: AMINO ACIDS/DEXT/LYTES 4.25-5% 1,000 ML IV SCH (17:18)
[2019-02-03] MEDS: METOCLOPRAMIDE 10 MG/2 ML VIAL IV SCH ×2 (17:20→23:58)
[2019-02-03] MEDS: VANCOMYCIN 50 MG/ML 60 ML/BOTTLE NG SCH ×2 (17:21→23:57)
[2019-02-04] MEDS: SODIUM CHLORIDE 23.4% CONC INJ 38.5 MEQ, SODIUM BICARB INJ 100 MEQ in STERILE WATER INJ... IV SCH ×2 (04:52→22:19)
[2019-02-04] MEDS: METOCLOPRAMIDE 10 MG/2 ML VIAL IV SCH ×3 (05:00→17:00)
[2019-02-04] MEDS: VANCOMYCIN 50 MG/ML 60 ML/BOTTLE NG SCH ×3 (05:01→17:00)
[2019-02-04 05:20] LABS: Basophils % 0.1 % (0.0-0.8); Eosinophils # 0.3 10*3/uL (0.0-0.87); Eosinophils % 2.2 % (0.00-10.9); Hematocrit 34.4 VOL% (35.7-47.0); Hemoglobin 11.5 GM/DL (12.0-16.0); Immature Granulocytes % 0.9 %; Immature Granulocytes Absolute 0.13 #; Lymphocytes # 1.1 10*3/uL (1.4-4.0); Lymphocytes % 7.2 % (21.3-54.2); Mean Corpuscular HGB Conc 33.4 GM/DL (32-36); Mean Corpuscular Volume 93.5 FL (87-102); Mean Platelet Volume 9.5 FL (9.6-12.0); Monocytes % 8.2 % (1.7-12.7); Neutrophils % 81.4 % (38.7-73.9); Platelet Count 338 T/CUMM (130-400); Red Blood Count 3.68 MC/CUMM (3.8-5.5); Red Cell Distribution Width 12.5 % (9.3-17.3); White Blood Count 14.6 T/CUMM (4-12)
[2019-02-04 05:44] LABS: Calcium 7.3 MG/DL (8.5-10.1); Osmolality,Calculated 297.5 MOS/KG (273-304)
[2019-02-04 05:47] LABS: Albumin 2.7 G/DL (3.4-5.0); Bilirubin,Total 0.7 MG/DL (0.2-1.0); Calcium 7.2 MG/DL (8.5-10.1); Osmolality,Calculated 297.5 MOS/KG (273-304); Total Protein 5.5 G/DL (6.4-8.3)
[2019-02-04] MEDS: methylPREDNISolone SOD SUC 40 MG/1 ML VIAL IV SCH (09:52)
[2019-02-04] MEDS: FAMOTIDINE 20 MG TABLET PO SCH (09:52)
[2019-02-04] MEDS ORDERED: MAGNESIUM CITRATE 300 ML BOTTLE NG ONE (16:00)
[2019-02-04] MEDS: AMINO ACIDS/DEXT/LYTES 4.25-5% 1,000 ML IV SCH (16:44)
[2019-02-05] MEDS: VANCOMYCIN 50 MG/ML 60 ML/BOTTLE NG SCH ×5 (00:09→17:02)
[2019-02-05] MEDS: METOCLOPRAMIDE 10 MG/2 ML VIAL IV SCH ×2 (00:09→05:38)
[2019-02-05 06:03] LABS: Calcium 7.6 MG/DL (8.5-10.1); Osmolality,Calculated 293.8 MOS/KG (273-304)
[2019-02-05 07:56] LABS: Basophils % 0.2 % (0.0-0.8); Eosinophils # 0.6 10*3/uL (0.0-0.87); Eosinophils % 3.7 % (0.00-10.9); Hematocrit 33.4 VOL% (35.7-47.0); Hemoglobin 11.1 GM/DL (12.0-16.0); Immature Granulocytes % 1.4 %; Immature Granulocytes Absolute 0.21 #; Lymphocytes # 1.4 10*3/uL (1.4-4.0); Mean Corpuscular HGB Conc 33.2 GM/DL (32-36); Mean Corpuscular Volume 93.8 FL (87-102); Mean Platelet Volume 9.6 FL (9.6-12.0); Monocytes % 9.1 % (1.7-12.7); Neutrophils % 76.6 % (38.7-73.9); Platelet Count 354 T/CUMM (130-400); Red Blood Count 3.56 MC/CUMM (3.8-5.5); Red Cell Distribution Width 12.5 % (9.3-17.3); White Blood Count 15.5 T/CUMM (4-12)
[2019-02-05] MEDS ORDERED: PROPOFOL 200 MG/20 ML VIAL IV ONE (08:30)
[2019-02-05] MEDS ORDERED: LIDOCAINE 2% 5 ML VIAL ONE (08:30)
[2019-02-05] MEDS: FAMOTIDINE 20 MG TABLET PO SCH (08:42)
[2019-02-05] MEDS: methylPREDNISolone SOD SUC 40 MG/1 ML VIAL IV SCH (08:42)
[2019-02-05] MEDS: METOCLOPRAMIDE 5 MG TABLET PO SCH ×3 (10:31→20:30)
[2019-02-05] MEDS: cloNIDine 0.1 MG TABLET PO PRN ×2 (10:52→20:30)
[2019-02-05] MEDS: AMINO ACIDS/DEXT/LYTES 4.25-5% 1,000 ML IV SCH (17:02)
[2019-02-05] MEDS ORDERED: MIRTAZAPINE 15 MG TABLET PO SCH (21:00)
[2019-02-05] MEDS: SODIUM CHLORIDE 23.4% CONC INJ 38.5 MEQ, SODIUM BICARB INJ 100 MEQ in STERILE WATER INJ... IV SCH (22:12)
[2019-02-06] MEDS: VANCOMYCIN 50 MG/ML 60 ML/BOTTLE NG SCH ×3 (00:37→11:49)
[2019-02-06 05:40] LABS: Basophils % 0.1 % (0.0-0.8); Hematocrit 32.8 VOL% (35.7-47.0); Hemoglobin 11.1 GM/DL (12.0-16.0); Immature Granulocytes Absolute 0.15 #; Lymphocytes # 1.4 10*3/uL (1.4-4.0); Lymphocytes % 9.8 % (21.3-54.2); Mean Corpuscular HGB Conc 33.8 GM/DL (32-36); Mean Corpuscular Volume 92.4 FL (87-102); Mean Platelet Volume 9.2 FL (9.6-12.0); Monocytes % 7.9 % (1.7-12.7); Neutrophils % 74.2 % (38.7-73.9); Platelet Count 334 T/CUMM (130-400); Red Blood Count 3.55 MC/CUMM (3.8-5.5); Red Cell Distribution Width 12.2 % (9.3-17.3); White Blood Count 14.7 T/CUMM (4-12)
[2019-02-06 06:05] LABS: Calcium 7.8 MG/DL (8.5-10.1); Osmolality,Calculated 291.9 MOS/KG (273-304)
[2019-02-06 07:38] VITALS: BP 184/87
[2019-02-06] MEDS: FAMOTIDINE 20 MG TABLET PO SCH (08:27)
[2019-02-06] MEDS: METOCLOPRAMIDE 5 MG TABLET PO SCH ×2 (08:27→11:49)
[2019-02-06] MEDS: cloNIDine 0.1 MG TABLET PO PRN (08:27)
[2019-02-06] MEDS ORDERED: predniSONE 20 MG TABLET PO SCH (11:55)
[2019-02-06] MEDS ORDERED: FAT EMULSION 20% 250 ML IV SCH (14:00)
[2019-02-06] MEDS ORDERED: AMINO ACIDS/DEXT/LYTES 4.25-5% 2,000 ML IV SCH (17:00)
== END 2019-02-06 12:20 | DRG 372 ==
LOC: EDUNIT# → EDBD → N.ED 11:28 → SUATTDRO 15:42 → N.EDINP 15:42 → N.5E 17:08
PROVIDERS: ADMIT Internal Medicine
PROC: [UNRECOGNIZED PROCEDURE] (2019-02-05 08:05)

== ENCOUNTER 2019-06-12 10:31 | Inpatient (IN) ==
[2019-06-12 11:23] LABS: Basophils % 0.2 % (0.0-0.8); Eosinophils # 0.1 10*3/uL (0.0-0.87); Eosinophils % 1.3 % (0.00-10.9); Hematocrit 22.6 VOL% (35.7-47.0); Hemoglobin 7.2 GM/DL (12.0-16.0); Immature Granulocytes % 6.7 %; Immature Granulocytes Absolute 0.56 #; Lymphocytes # 1.5 10*3/uL (1.4-4.0); Lymphocytes % 18.1 % (21.3-54.2); Mean Corpuscular HGB Conc 31.9 GM/DL (32-36); Mean Corpuscular Volume 101.8 FL (87-102); Mean Platelet Volume 9.5 FL (9.6-12.0); Monocytes % 6.6 % (1.7-12.7); NRBC # 0.02 10*3/uL; Neutrophils % 67.1 % (38.7-73.9); Platelet Count 344 T/CUMM (130-400); Red Blood Count 2.22 MC/CUMM (3.8-5.5); White Blood Count 8.4 T/CUMM (4-12)
[2019-06-12 11:54] LABS: Anisocytosis 1+; Band Neutrophils 1 % (0-10); Eosinophils 2 % (0-10); Lymphocytes 24 % (20-55); Platelet Estimate Normal; Polychromasia Slight; Segmented Neutrophils 68 % (50-85); Total Cells Counted 100
[2019-06-12 11:54] LABS: Albumin 2.2 G/DL (3.4-5.0); Bilirubin,Total 0.4 MG/DL (0.2-1.0); Calcium 8.4 MG/DL (8.5-10.1); Total Protein 6.4 G/DL (6.4-8.3)
[2019-06-12 12:07] LABS: PT Patient Result 10.5 SECS (9.6-12.2); Partial Thromboplastin Time 24.4 SECS (20.8-36.0)
[2019-06-12] MEDS ORDERED: DOCUSATE SODIUM 100 MG CAPSULE PO PRN (14:11)
[2019-06-12] MEDS ORDERED: ONDANSETRON 4 MG/2 ML VIAL IV PRN (14:11)
[2019-06-12] MEDS ORDERED: ACETAMINOPHEN 325 MG TABLET PO PRN (14:11)
[2019-06-12] MEDS ORDERED: SODIUM CHLORIDE 0.9% 1,000 ML IV PRN (14:17)
[2019-06-12] MEDS ORDERED: DEXTROSE 5% NACL 0.9% 1,000 ML IV SCH (14:30)
[2019-06-12 14:58] LABS: Risk Ratio 11.56; Thyroid Stimulating Hormone 82.8 uIU/ml (0.358-3.74)
[2019-06-12 15:53] LABS: Basophils % 0.5 % (0.0-0.8); Eosinophils # 0.1 10*3/uL (0.0-0.87); Eosinophils % 1.3 % (0.00-10.9); Hematocrit 22.1 VOL% (35.7-47.0); Hemoglobin 6.8 GM/DL (12.0-16.0); Immature Granulocytes % 8.2 %; Immature Granulocytes Absolute 0.65 #; Lymphocytes # 1.4 10*3/uL (1.4-4.0); Lymphocytes % 18.1 % (21.3-54.2); Mean Corpuscular HGB Conc 30.8 GM/DL (32-36); Mean Corpuscular Volume 104.7 FL (87-102); Monocytes % 6.8 % (1.7-12.7); Neutrophils % 65.1 % (38.7-73.9); Platelet Count 330 T/CUMM (130-400); Red Blood Count 2.11 MC/CUMM (3.8-5.5); White Blood Count 7.9 T/CUMM (4-12)
[2019-06-12 16:22] LABS: Folate 13.3 NG/ML (5.4-24.0); Vitamin B12 349 PG/ML (211-911)
[2019-06-12 17:09] LABS: Sedimentation Rate-Westergren 97 MM/HR (0-30)
[2019-06-12] MEDS: METOCLOPRAMIDE 10 MG TABLET PO SCH ×2 (17:25→21:56)
[2019-06-12] MEDS: FUROSEMIDE 20 MG TABLET PO SCH (17:25)
[2019-06-12 18:06] LABS: Apearance,Urine Slightly Hazy (Clear); Bilirubin,Urine Negative (Negative); Blood, Urine Moderate mg/dL (Negative); Glucose,Urine (UA) Negative (Negative); Ketones,Urine Negative (Negative); Nitrite,Urine Negative (Negative); Protein,Urine Negative; RBC,Urine 4 /HPF (0-4); Urine Color Yellow (Yellow); Urine Urobilinogen < 2.0 EU/DL (0.2-1.0); WBC,Urine 181 /HPF (0-6)
[2019-06-12 18:11] LABS: % Iron Saturation 21.3 % (18-50)
[2019-06-12 20:25] LABS: Band Neutrophils 1 % (0-10); Eosinophils 4 % (0-10); Lymphocytes 13 % (20-55); Myelocytes 4 %; Nucleated Red Blood Cells 1 (0-5); Promyelocytes 1 %; Segmented Neutrophils 71 % (50-85); Total Cells Counted 100
[2019-06-12 20:26] LABS: Platelet Estimate Normal; Polychromasia 1+
[2019-06-12 20:27] LABS: Anisocytosis 1+; Macrocytosis 1+
[2019-06-12 20:30] LABS: Ovalocytes Few
[2019-06-12] MEDS: MEGESTROL 400 MG/10 ML UDCUP PO SCH (21:55)
[2019-06-12] MEDS: TAMSULOSIN 0.4 MG CAPSULE PO SCH (21:55)
[2019-06-12] MEDS: METOPROLOL TARTRATE 25 MG TABLET PO SCH (21:56)
[2019-06-12] MEDS: MIRTAZAPINE 15 MG TABLET PO SCH (21:56)
[2019-06-13 03:05] LABS: Basophils # 0.1 10*3/uL (0.0-0.2); Basophils % 0.9 % (0.0-0.8); Eosinophils # 0.1 10*3/uL (0.0-0.87); Eosinophils % 1.6 % (0.00-10.9); Hematocrit 27.7 VOL% (35.7-47.0); Hemoglobin 8.9 GM/DL (12.0-16.0); Immature Granulocytes Absolute 0.63 #; Lymphocytes # 1.3 10*3/uL (1.4-4.0); Lymphocytes % 18.9 % (21.3-54.2); Mean Corpuscular HGB Conc 32.1 GM/DL (32-36); Mean Corpuscular Volume 95.8 FL (87-102); Monocytes % 8.1 % (1.7-12.7); NRBC # 0.02 10*3/uL; Neutrophils % 61.5 % (38.7-73.9); Platelet Count 244 T/CUMM (130-400); Red Blood Count 2.89 MC/CUMM (3.8-5.5); Red Cell Distribution Width 16.8 % (9.3-17.3)
[2019-06-13 03:46] LABS: Calcium 7.7 MG/DL (8.5-10.1); Osmolality,Calculated 282.4 MOS/KG (273-304)
[2019-06-13 05:21] LABS: Anisocytosis 1+; Eosinophils 2 % (0-10); Hypochromasia 1+; Lymphocytes 20 % (20-55); Macrocytosis 1+; Platelet Estimate Adequate; Polychromasia Slight; Segmented Neutrophils 68 % (50-85); Total Cells Counted 100
[2019-06-13] MEDS: LEVOTHYROXINE 100 MCG VIAL IV SCH (06:11)
[2019-06-13] MEDS ORDERED: FERROUS SULFATE 325 MG TABLET PO SCH (09:00)
[2019-06-13] MEDS: MEGESTROL 400 MG/10 ML UDCUP PO SCH ×2 (09:53→21:48)
[2019-06-13] MEDS: METOPROLOL TARTRATE 25 MG TABLET PO SCH ×2 (09:53→21:49)
[2019-06-13] MEDS: FUROSEMIDE 20 MG TABLET PO SCH ×2 (09:53→17:11)
[2019-06-13] MEDS: METOCLOPRAMIDE 10 MG TABLET PO SCH ×4 (09:53→21:50)
[2019-06-13] MEDS: POTASSIUM CHLORIDE 10 MEQ TABLET PO SCH (09:53)
[2019-06-13] MEDS: PANTOPRAZOLE 40 MG TABLET PO SCH (09:53)
[2019-06-13] MEDS: cefTRIAXone 1,000 MG in SYRINGE 1 EACH IV SCH (11:08)
[2019-06-13] MEDS: TAMSULOSIN 0.4 MG CAPSULE PO SCH (21:50)
[2019-06-13] MEDS: MIRTAZAPINE 15 MG TABLET PO SCH (21:50)
[2019-06-14 04:49] LABS: Basophils # 0.1 10*3/uL (0.0-0.2); Basophils % 1.1 % (0.0-0.8); Eosinophils # 0.1 10*3/uL (0.0-0.87); Eosinophils % 1.5 % (0.00-10.9); Hematocrit 30.7 VOL% (35.7-47.0); Hemoglobin 10.1 GM/DL (12.0-16.0); Immature Granulocytes Absolute 0.76 #; Lymphocytes # 1.7 10*3/uL (1.4-4.0); Lymphocytes % 19.6 % (21.3-54.2); Mean Corpuscular HGB Conc 32.9 GM/DL (32-36); Mean Corpuscular Volume 93.9 FL (87-102); Mean Platelet Volume 9.2 FL (9.6-12.0); Neutrophils % 60.8 % (38.7-73.9); Platelet Count 304 T/CUMM (130-400); Red Blood Count 3.27 MC/CUMM (3.8-5.5); Red Cell Distribution Width 17.8 % (9.3-17.3); White Blood Count 8.5 T/CUMM (4-12)
[2019-06-14 05:23] LABS: Anisocytosis 1+; Band Neutrophils 3 % (0-10); Calcium 8.7 MG/DL (8.5-10.1); Eosinophils 1 % (0-10); Lymphocytes 21 % (20-55); Metamyelocytes 2 %; Myelocytes 3 %; Osmolality,Calculated 280.5 MOS/KG (273-304); Segmented Neutrophils 65 % (50-85); Total Cells Counted 100
[2019-06-14 05:24] LABS: Microcytosis Slight; Ovalocytes Slight
[2019-06-14 05:25] LABS: Platelet Estimate Normal; Polychromasia Slight; Target Cells Slight
[2019-06-14] MEDS: METOCLOPRAMIDE 10 MG TABLET PO SCH ×4 (07:07→21:22)
[2019-06-14] MEDS: LEVOTHYROXINE 100 MCG VIAL IV SCH (07:07)
[2019-06-14] MEDS: FUROSEMIDE 20 MG TABLET PO SCH ×2 (08:05→17:47)
[2019-06-14] MEDS: POTASSIUM CHLORIDE 10 MEQ TABLET PO SCH (08:05)
[2019-06-14] MEDS: PANTOPRAZOLE 40 MG TABLET PO SCH (08:06)
[2019-06-14] MEDS: METOPROLOL TARTRATE 25 MG TABLET PO SCH ×2 (08:06→21:23)
[2019-06-14] MEDS: MEGESTROL 400 MG/10 ML UDCUP PO SCH ×2 (08:06→22:14)
[2019-06-14] MEDS: cefTRIAXone 1,000 MG in SYRINGE 1 EACH IV SCH (11:27)
[2019-06-14] MEDS: MIRTAZAPINE 15 MG TABLET PO SCH (21:22)
[2019-06-14] MEDS: TAMSULOSIN 0.4 MG CAPSULE PO SCH (21:23)
[2019-06-15 05:43] LABS: Basophils % 0.3 % (0.0-0.8); Eosinophils # 0.1 10*3/uL (0.0-0.87); Eosinophils % 1.3 % (0.00-10.9); Hematocrit 36.7 VOL% (35.7-47.0); Hemoglobin 11.4 GM/DL (12.0-16.0); Immature Granulocytes % 8.1 %; Immature Granulocytes Absolute 0.76 #; Lymphocytes # 1.7 10*3/uL (1.4-4.0); Lymphocytes % 18.6 % (21.3-54.2); Mean Corpuscular HGB Conc 31.1 GM/DL (32-36); Mean Corpuscular Volume 100.5 FL (87-102); Mean Platelet Volume 8.9 FL (9.6-12.0); Monocytes % 8.1 % (1.7-12.7); Neutrophils % 63.6 % (38.7-73.9); Platelet Count 307 T/CUMM (130-400); Red Blood Count 3.65 MC/CUMM (3.8-5.5); Red Cell Distribution Width 17.4 % (9.3-17.3); White Blood Count 9.3 T/CUMM (4-12)
[2019-06-15 06:50] LABS: Band Neutrophils 6 % (0-10); Eosinophils 1 % (0-10); Lymphocytes 19 % (20-55); Metamyelocytes 3 %; Myelocytes 5 %; Platelet Estimate Normal; Segmented Neutrophils 64 % (50-85); Total Cells Counted 100
[2019-06-15 06:51] LABS: Anisocytosis 1+
[2019-06-15 06:52] LABS: Macrocytosis 1+
[2019-06-15] MEDS: PANTOPRAZOLE 40 MG TABLET PO SCH (08:57)
[2019-06-15] MEDS: METOCLOPRAMIDE 10 MG TABLET PO SCH ×4 (08:57→20:45)
[2019-06-15] MEDS: LEVOTHYROXINE 100 MCG VIAL IV SCH (08:57)
[2019-06-15] MEDS: MEGESTROL 400 MG/10 ML UDCUP PO SCH ×2 (08:57→20:45)
[2019-06-15] MEDS: POTASSIUM CHLORIDE 10 MEQ TABLET PO SCH (08:57)
[2019-06-15] MEDS: FUROSEMIDE 20 MG TABLET PO SCH ×2 (08:57→16:13)
[2019-06-15] MEDS: METOPROLOL TARTRATE 25 MG TABLET PO SCH ×2 (08:58→20:45)
[2019-06-15] MEDS: cefTRIAXone 1,000 MG in SYRINGE 1 EACH IV SCH (11:26)
[2019-06-15] MEDS: MIRTAZAPINE 15 MG TABLET PO SCH (20:45)
[2019-06-15] MEDS: TAMSULOSIN 0.4 MG CAPSULE PO SCH (20:45)
[2019-06-16 05:28] LABS: Basophils # 0.1 10*3/uL (0.0-0.2); Basophils % 0.7 % (0.0-0.8); Eosinophils # 0.1 10*3/uL (0.0-0.87); Eosinophils % 0.8 % (0.00-10.9); Hematocrit 32.6 VOL% (35.7-47.0); Hemoglobin 10.6 GM/DL (12.0-16.0); Immature Granulocytes % 8.2 %; Lymphocytes # 1.5 10*3/uL (1.4-4.0); Lymphocytes % 17.4 % (21.3-54.2); Mean Corpuscular HGB Conc 32.5 GM/DL (32-36); Mean Corpuscular Volume 95.9 FL (87-102); Mean Platelet Volume 9.2 FL (9.6-12.0); Monocytes % 5.8 % (1.7-12.7); Neutrophils % 67.1 % (38.7-73.9); Platelet Count 316 T/CUMM (130-400); Red Cell Distribution Width 16.6 % (9.3-17.3); White Blood Count 8.6 T/CUMM (4-12)
[2019-06-16 05:51] LABS: Band Neutrophils 4 % (0-10); Lymphocytes 23 % (20-55); Myelocytes 3 %; Segmented Neutrophils 67 % (50-85); Total Cells Counted 100
[2019-06-16 05:52] LABS: Anisocytosis 1+; Ovalocytes 1+; Platelet Estimate Adequate
[2019-06-16 05:58] LABS: Calcium 8.3 MG/DL (8.5-10.1); Osmolality,Calculated 285.3 MOS/KG (273-304)
[2019-06-16] MEDS: LEVOTHYROXINE 100 MCG VIAL IV SCH (06:37)
[2019-06-16] MEDS: FUROSEMIDE 20 MG TABLET PO SCH ×2 (08:15→16:29)
[2019-06-16] MEDS: METOCLOPRAMIDE 10 MG TABLET PO SCH ×5 (08:16→22:17)
[2019-06-16] MEDS: POTASSIUM CHLORIDE 10 MEQ TABLET PO SCH (08:16)
[2019-06-16] MEDS: METOPROLOL TARTRATE 25 MG TABLET PO SCH ×3 (08:16→22:17)
[2019-06-16] MEDS: PANTOPRAZOLE 40 MG TABLET PO SCH (08:17)
[2019-06-16] MEDS: MEGESTROL 400 MG/10 ML UDCUP PO SCH (08:17)
[2019-06-16] MEDS: cefTRIAXone 1,000 MG in SYRINGE 1 EACH IV SCH (12:26)
[2019-06-16] MEDS ORDERED: TUBERCULIN SKIN TEST 0.1 ML SYRINGE INTRADERM ONE (16:20)
[2019-06-16] MEDS: CYANOCOBALAMIN 1000 MCG/1 ML VIAL SUBCUT ONE ×2 (21:49→21:56)
[2019-06-16] MEDS: TAMSULOSIN 0.4 MG CAPSULE PO SCH ×2 (21:50→22:17)
[2019-06-16] MEDS: MIRTAZAPINE 15 MG TABLET PO SCH ×2 (21:50→22:18)
[2019-06-16] MEDS: POLYETHYLENE GLYCOL POWDER 17 GM PACK PO SCH (22:17)
[2019-06-17 04:23] LABS: Basophils # 0.1 10*3/uL (0.0-0.2); Basophils % 0.6 % (0.0-0.8); Eosinophils # 0.1 10*3/uL (0.0-0.87); Eosinophils % 1.3 % (0.00-10.9); Hematocrit 30.3 VOL% (35.7-47.0); Hemoglobin 9.9 GM/DL (12.0-16.0); Immature Granulocytes % 8.6 %; Immature Granulocytes Absolute 0.71 #; Lymphocytes # 1.7 10*3/uL (1.4-4.0); Lymphocytes % 20.7 % (21.3-54.2); Mean Corpuscular HGB Conc 32.7 GM/DL (32-36); Mean Corpuscular Volume 95.6 FL (87-102); Mean Platelet Volume 9.3 FL (9.6-12.0); Monocytes % 7.4 % (1.7-12.7); Neutrophils % 61.4 % (38.7-73.9); Platelet Count 292 T/CUMM (130-400); Red Blood Count 3.17 MC/CUMM (3.8-5.5); White Blood Count 8.2 T/CUMM (4-12)
[2019-06-17 04:47] LABS: Band Neutrophils 3 % (0-10); Lymphocytes 18 % (20-55); Segmented Neutrophils 73 % (50-85); Total Cells Counted 100
[2019-06-17 04:48] LABS: Platelet Estimate Adequate
[2019-06-17 04:49] LABS: Hypochromasia 1+
[2019-06-17 04:53] LABS: Calcium 8.6 MG/DL (8.5-10.1); Osmolality,Calculated 282.5 MOS/KG (273-304)
[2019-06-17] MEDS: LEVOTHYROXINE 100 MCG TABLET PO SCH (06:22)
[2019-06-17] MEDS: METOPROLOL TARTRATE 25 MG TABLET PO SCH ×3 (08:05→22:26)
[2019-06-17] MEDS: METOCLOPRAMIDE 10 MG TABLET PO SCH ×4 (08:05→22:26)
[2019-06-17] MEDS: PANTOPRAZOLE 40 MG TABLET PO SCH (08:05)
[2019-06-17] MEDS: POLYETHYLENE GLYCOL POWDER 17 GM PACK PO SCH ×3 (08:05→22:27)
[2019-06-17] MEDS: FUROSEMIDE 20 MG TABLET PO SCH ×2 (08:05→16:01)
[2019-06-17] MEDS: POTASSIUM CHLORIDE 10 MEQ TABLET PO SCH (08:05)
[2019-06-17] MEDS ORDERED: SODIUM PHOSPHATE ENEMA 133 ML BOTTLE RECTAL ONE (12:03)
[2019-06-17] MEDS: cefTRIAXone 1,000 MG in SYRINGE 1 EACH IV SCH (12:19)
[2019-06-17] MEDS: LACTATED RINGERS 1,000 ML IV SCH (12:19)
[2019-06-17] MEDS ORDERED: PROPOFOL 200 MG/20 ML VIAL IV ONE (13:44)
[2019-06-17] MEDS ORDERED: ETOMIDATE 20 MG/10 ML VIAL IV ONE (13:44)
[2019-06-17] MEDS ORDERED: LIDOCAINE 100 MG/5 ML SYRINGE ONE (13:44)
[2019-06-17] MEDS: TAMSULOSIN 0.4 MG CAPSULE PO SCH (22:26)
[2019-06-17] MEDS: MIRTAZAPINE 15 MG TABLET PO SCH (22:26)
[2019-06-18 04:35] LABS: Basophils % 0.3 % (0.0-0.8); Eosinophils # 0.1 10*3/uL (0.0-0.87); Hematocrit 32.6 VOL% (35.7-47.0); Hemoglobin 10.7 GM/DL (12.0-16.0); Immature Granulocytes % 4.3 %; Immature Granulocytes Absolute 0.52 #; Lymphocytes # 1.6 10*3/uL (1.4-4.0); Lymphocytes % 12.8 % (21.3-54.2); Mean Corpuscular HGB Conc 32.8 GM/DL (32-36); Mean Corpuscular Volume 94.5 FL (87-102); Mean Platelet Volume 9.4 FL (9.6-12.0); Monocytes % 5.3 % (1.7-12.7); Neutrophils % 76.3 % (38.7-73.9); Platelet Count 327 T/CUMM (130-400); Red Blood Count 3.45 MC/CUMM (3.8-5.5); Red Cell Distribution Width 15.9 % (9.3-17.3); White Blood Count 12.2 T/CUMM (4-12)
[2019-06-18 04:51] LABS: Calcium 8.2 MG/DL (8.5-10.1); Osmolality,Calculated 277.7 MOS/KG (273-304)
[2019-06-18 05:21] LABS: Band Neutrophils 4 % (0-10); Lymphocytes 12 % (20-55); Segmented Neutrophils 78 % (50-85); Total Cells Counted 100
[2019-06-18 05:22] LABS: Hypochromasia 1+; Microcytosis Slight; Ovalocytes Slight
[2019-06-18] MEDS: LEVOTHYROXINE 100 MCG TABLET PO SCH (07:57)
[2019-06-18] MEDS: PANTOPRAZOLE 40 MG TABLET PO SCH (10:35)
[2019-06-18] MEDS: POTASSIUM CHLORIDE 10 MEQ TABLET PO SCH (10:35)
[2019-06-18] MEDS: FUROSEMIDE 20 MG TABLET PO SCH ×2 (10:35→16:58)
[2019-06-18] MEDS: METOCLOPRAMIDE 10 MG TABLET PO SCH ×4 (10:35→20:19)
[2019-06-18] MEDS: METOPROLOL TARTRATE 25 MG TABLET PO SCH ×2 (10:36→20:19)
[2019-06-18] MEDS: POLYETHYLENE GLYCOL POWDER 17 GM PACK PO SCH ×3 (10:47→20:20)
[2019-06-18] MEDS: cefTRIAXone 1,000 MG in SYRINGE 1 EACH IV SCH (12:10)
[2019-06-18] MEDS: LACTATED RINGERS 1,000 ML IV SCH (12:15)
[2019-06-18] MEDS: TAMSULOSIN 0.4 MG CAPSULE PO SCH (20:19)
[2019-06-18] MEDS: MIRTAZAPINE 15 MG TABLET PO SCH (20:20)
[2019-06-19 05:23] LABS: Basophils # 0.1 10*3/uL (0.0-0.2); Basophils % 0.6 % (0.0-0.8); Eosinophils # 0.1 10*3/uL (0.0-0.87); Eosinophils % 1.3 % (0.00-10.9); Hematocrit 31.8 VOL% (35.7-47.0); Hemoglobin 10.3 GM/DL (12.0-16.0); Immature Granulocytes % 3.8 %; Immature Granulocytes Absolute 0.36 #; Lymphocytes # 1.4 10*3/uL (1.4-4.0); Lymphocytes % 15.2 % (21.3-54.2); Mean Corpuscular HGB Conc 32.4 GM/DL (32-36); Mean Corpuscular Volume 95.8 FL (87-102); Mean Platelet Volume 9.5 FL (9.6-12.0); Monocytes % 7.6 % (1.7-12.7); Neutrophils % 71.5 % (38.7-73.9); Platelet Count 329 T/CUMM (130-400); Red Blood Count 3.32 MC/CUMM (3.8-5.5); Red Cell Distribution Width 15.9 % (9.3-17.3); White Blood Count 9.5 T/CUMM (4-12)
[2019-06-19] MEDS: LEVOTHYROXINE 100 MCG TABLET PO SCH (05:30)
[2019-06-19 09:42] VITALS: BP 151/75
[2019-06-19] MEDS: METOPROLOL TARTRATE 25 MG TABLET PO SCH (09:42)
[2019-06-19] MEDS: METOCLOPRAMIDE 10 MG TABLET PO SCH (09:42)
[2019-06-19] MEDS: POLYETHYLENE GLYCOL POWDER 17 GM PACK PO SCH (09:42)
[2019-06-19] MEDS: PANTOPRAZOLE 40 MG TABLET PO SCH (09:42)
[2019-06-19] MEDS: POTASSIUM CHLORIDE 10 MEQ TABLET PO SCH (09:42)
[2019-06-19] MEDS: FUROSEMIDE 20 MG TABLET PO SCH (09:42)
== END 2019-06-19 10:25 | DRG 803 ==
LOC: EDUNIT# → N.ED 10:31 → N.EDINP 12:00 → SUATTDRO 12:00 → N.4E 12:25
PROVIDERS: ADMIT Internal Medicine; ATTEND Internal Medicine Cardiovascular Disease

== ENCOUNTER 2019-08-08 16:55 | Observation (INO) ==
[2019-08-08] MEDS ORDERED: PANTOPRAZOLE 40 MG VIAL IV STA (17:28)
[2019-08-08 17:35] LABS: Basophils # 0.1 10*3/uL (0.0-0.2); Basophils % 0.6 % (0.0-0.8); Eosinophils # 0.2 10*3/uL (0.0-0.87); Eosinophils % 2.2 % (0.00-10.9); Hemoglobin 8.8 GM/DL (12.0-16.0); Immature Granulocytes % 0.8 %; Immature Granulocytes Absolute 0.06 #; Lymphocytes # 1.4 10*3/uL (1.4-4.0); Lymphocytes % 17.3 % (21.3-54.2); Mean Corpuscular HGB Conc 31.4 GM/DL (32-36); Mean Corpuscular Volume 98.2 FL (87-102); Mean Platelet Volume 9.1 FL (9.6-12.0); Monocytes % 7.2 % (1.7-12.7); Neutrophils % 71.9 % (38.7-73.9); Platelet Count 459 T/CUMM (130-400); Red Blood Count 2.85 MC/CUMM (3.8-5.5); Red Cell Distribution Width 14.6 % (9.3-17.3); White Blood Count 7.9 T/CUMM (4-12)
[2019-08-08 18:00] LABS: Alanine Aminotransferase 13 U/L (13-56); Albumin 2.2 G/DL (3.4-5.0); Alkaline Phosphatase 84 U/L (45-117); Aspartate Amino Transferase 18 U/L (0-37); Bilirubin,Total < 0.39 MG/DL (0.2-1.0); Blood Urea Nitrogen 11 MG/DL (7-18); Calcium 8.9 MG/DL (8.5-10.1); Estimated Glom Filtration Rate 85 ML/MIN; Glucose 95 MG/DL (74-106); Total Protein 6.5 G/DL (6.4-8.3)
[2019-08-08] MEDS ORDERED: ONDANSETRON 4 MG/2 ML VIAL IV PRN (19:37)
[2019-08-08] MEDS ORDERED: TAMSULOSIN 0.4 MG CAPSULE PO SCH (21:00)
[2019-08-08] MEDS ORDERED: ARGININE GLUTAMINE CALCIUM HMB PO SCH (21:00)
[2019-08-08] MEDS ORDERED: MIRTAZAPINE 15 MG TABLET PO SCH (21:00)
[2019-08-08] MEDS: METOCLOPRAMIDE 10 MG TABLET PO SCH (23:35)
[2019-08-08] MEDS: FUROSEMIDE 20 MG TABLET PO SCH (23:35)
[2019-08-08] MEDS: METOPROLOL TARTRATE 25 MG TABLET PO SCH (23:35)
[2019-08-09 05:54] LABS: Basophils # 0.1 10*3/uL (0.0-0.2); Basophils % 0.7 % (0.0-0.8); Eosinophils # 0.1 10*3/uL (0.0-0.87); Eosinophils % 1.9 % (0.00-10.9); Hematocrit 26.3 VOL% (35.7-47.0); Hemoglobin 8.2 GM/DL (12.0-16.0); Immature Granulocytes Absolute 0.07 #; Lymphocytes # 1.3 10*3/uL (1.4-4.0); Lymphocytes % 18.2 % (21.3-54.2); Mean Corpuscular HGB Conc 31.2 GM/DL (32-36); Mean Corpuscular Volume 97.8 FL (87-102); Mean Platelet Volume 9.3 FL (9.6-12.0); Monocytes % 7.5 % (1.7-12.7); Neutrophils % 70.7 % (38.7-73.9); Platelet Count 472 T/CUMM (130-400); Red Blood Count 2.69 MC/CUMM (3.8-5.5); Red Cell Distribution Width 14.8 % (9.3-17.3); White Blood Count 7.3 T/CUMM (4-12)
[2019-08-09] MEDS ORDERED: PANTOPRAZOLE 40 MG TABLET PO SCH (06:00)
[2019-08-09] MEDS ORDERED: LEVOTHYROXINE 125 MCG TABLET PO SCH (06:00)
[2019-08-09] MEDS: POLYETHYLENE GLYCOL POWDER 17 GM PACK PO SCH ×3 (06:20→14:41)
[2019-08-09] MEDS: FAMOTIDINE 20 MG TABLET PO SCH (07:55)
[2019-08-09] MEDS ORDERED: POTASSIUM CHLORIDE 10 MEQ TABLET PO SCH (08:00)
[2019-08-09] MEDS ORDERED: FERROUS SULFATE 325 MG TABLET PO SCH (08:00)
[2019-08-09] MEDS: METOPROLOL TARTRATE 25 MG TABLET PO SCH (10:30)
[2019-08-09] MEDS: FUROSEMIDE 20 MG TABLET PO SCH (10:30)
[2019-08-09] MEDS: METOCLOPRAMIDE 10 MG TABLET PO SCH ×3 (10:30→18:04)
[2019-08-09 16:04] VITALS: BP 137/75
== END 2019-08-09 16:40 ==
LOC: EDBD → EDUNIT# → N.ED 16:55 → N.EDINP 16:55 → N.5E 20:48
PROVIDERS: ADMIT Hospitalist; ATTEND Hospitalist